=== PATIENT | female | born 1935 | race Caucasian/White ===

== ENCOUNTER 2016-11-04 18:37 | Inpatient (IN) | payer MEDICARE, OTHER ==
--- NOTE | 2016-11-04 19:56 | XR ---
EXAMINATION TYPE: AP view pelvis. 2 views right hip. DATE OF EXAM: 11/04/2016 COMPARISON: NONE HISTORY: 81 year-old female right hip and groin pain after fall FINDINGS: There is an impacted and proximally displaced transcervical basicervical fracture of the right femora l neck. External rotation of the femoral shaft fragment. Mild underlying degenerative change at the h ips. IMPRESSION: Impacted and proximally displaced basicervical to transcervical right femoral neck fracture.
--- NOTE | 2016-11-04 19:58 | XR ---
EXAMINATION TYPE: XR chest 1V DATE OF EXAM: 11/04/2016 COMPARISON: NONE HISTORY: 81-year-old female with pain after fall TECHNIQUE: Single frontal view of the chest is obtained. FINDINGS: Heart is upper limits of normal in size. Aorta and pulmonary vasculature within normal limits. Mild d iffuse interstitial prominence has a chronic appearance. No consolidation, pneumothorax, or pleural e ffusion. IMPRESSION: Chronic appearing changes without acute process.
--- NOTE | 2016-11-04 20:02 | XR ---
EXAMINATION TYPE: 3 views right elbow. 4 views right wrist. 3 views right hand. DATE OF EXAM: 11/04/2016 COMPARISON: NONE HISTORY: 81-year-old female generalized pain after fall FINDINGS: Right elbow: No elbow joint effusion. No acute fracture, subluxation, or dislocation. Right wrist: The radiocarpal and distal radioulnar joints as well as the midcarpal compartment appear intact. Ther e may be mild ulnar soft tissue swelling. No acute fracture, subluxation, or dislocation. Right hand: A ring is present on the fourth digit. Scattered [id number] osteoarthritic changes particularly in the DIP joints. No acute fracture, subluxation, or dislocation. IMPRESSION (right elbow, wrist, and hand): No acute osseous abnormality seen. Some scattered osteoarthritic changes in the fingers and mild ulna r-sided soft tissue swelling at the wrist.
[2016-11-04] MEDS ORDERED: fentaNYL (PF) 50 MCG/ML 2 ML AMP IV PRN (20:18)
--- NOTE | 2016-11-04 20:20 | ED ---
General Adult HPI - General Chief complaint: Fall Stated complaint: Fall Time Seen by Provider: 11/04/16 18:44 Source: patient, family, EMS, RN notes reviewed Mode of arrival: EMS - History of Present Illness Initial comments: 81-year-old female presents status post fall. Patient states she tripped falling onto her right side. She is currently complaining of right hip and groin pain. Patient was not in respiratory after the fall. She denies any head or neck trauma. Denies loss of consciousness. Complains of some right hand and right elbow pain as well. Denies any lightheadedness, chest pain, or palpitations prior to the fall. Patient's only past medical history is hypothyroidism. - Related Data Home Medications Medication Instructions Recorded Confirmed Ibandronate Sodium [Boniva] 150 mg PO Q30D 11/04/16 11/04/16 Latanoprost Ophth [Xalatan 0.005%] 1 drops BOTH EYES HS 11/04/16 11/04/16 Levothyroxine Sodium [Synthroid] 88 mcg PO DAILY 11/04/16 11/04/16 QUEtiapine [SEROquel] 25 mg PO HS 11/04/16 11/04/16 Rivastigmine 9.5MG/24Hr Patch 1 patch TRANSDERM DAILY 11/04/16 11/04/16 [Exelon 9.5MG/24Hr Patch] risperiDONE [RisperDAL] 0.25 mg PO HS 11/04/16 11/04/16 Allergies Allergy/AdvReac Type Severity Reaction Status Date / Time No Known Allergies Allergy Verified 11/04/16 18:50 Review of Systems ROS Statement: Those systems with pertinent positive or pertinent negative responses have been documented in the HPI. ROS Other: All systems not noted in ROS Statement are negative. Respiratory: Denies: cough Cardiovascular: Denies: chest pain Past Medical History Past Medical History: Thyroid Disorder History of Any Multi-Drug Resistant Organisms: None Reported Past Surgical History: Hysterectomy Past Psychological History: No Psychological Hx Reported Smoking Status: Never smoker Past Alcohol Use History: Occasional Past Drug Use History: None Reported General Exam General appearance: alert, in no apparent distress Head exam: Present: atraumatic, normocephalic Eye exam: Present: normal appearance, PERRL ENT exam: Present: normal exam, mucous membranes moist Neck exam: Present: normal inspection, full ROM. Absent: tenderness Respiratory exam: Present: normal lung sounds bilaterally. Absent: respiratory distress Cardiovascular Exam: Present: regular rate, normal rhythm GI/Abdominal exam: Present: soft. Absent: distended, tenderness Extremities exam: Present: normal capillary refill, other (Right lower extremity is shortened, there is no external signs of trauma to the knee or ankle, no bony tenderness tibia-fibula or proximal femur, distal pulses are intact.). Absent: pedal edema Psychiatric exam: Present: normal affect, normal mood Skin exam: Present: warm, dry Course Vital Signs 11/04/16 11/04/16 11/04/16 18:40 21:02 21:35 Temperature 98.2 F 98.5 F Pulse Rate 77 65 Pulse Rate [ 59 L Pulse Oximetery ] Respiratory 18 18 16 Rate Blood Pressure 155/71 161/67 Blood Pressure 145/78 [Right Arm] O2 Sat by Pulse 98 97 95 Oximetry EKG Findings - EKG Comments: EKG Findings:: EKG shows sinus bradycardia with a ventricular 59, CT interval 180, QRS duration 84, QTC is 439, there is no ST segment elevation or depression , no signs of ischemia. Medical Decision Making - Medical Decision Making 81-year-old female presenting status post mechanical fall onto her right side. Patient has a right femoral neck fracture, x-rays of the right wrist, hand, right elbow, and chest are negative for fracture or dislocation. Case is discussed with orthopedic surgery, she will be admitted for operative repair of right femoral neck fracture. Internal medicine will be placed on consult. Laboratory studies : CBC, BMP, and coagulation studies are unremarkable. Diagnosis: Right femoral neck fracture. - Lab Data Result diagrams: 11/04/16 21:00 11/04/16 21:00 Disposition Clinical Impression: Fall, Femoral neck fracture Disposition: ADMITTED IP TO THIS [facility] Condition: Stable Time of Disposition: 20:19 Decision to Admit Reason: Admit from EC Decision Date: 11/04/16 Decision Time: 20:20
[2016-11-04] MEDS ORDERED: ONDANSETRON 4 MG/2 ML VIAL IVP PRN (20:36)
[2016-11-04] MEDS ORDERED: NALOXONE 0.4 MG/ML 1 ML VIAL IV PRN (20:36)
[2016-11-04 21:13] LABS: Basophils % (A) 0 %; CHCM 34.5; Eosinophils # (A) 0.1 k/uL (0-0.7); Eosinophils % (A) 1 %; HCT 34.7 % (34.0-46.0); HDW 2.58; HGB 12.1 gm/dL (11.4-16.0); Luc # (Auto) 0.09; Luc % (Auto) 1; Lymphocytes # (A) 0.9 k/uL (1.0-4.8); Lymphocytes % (A) 9 %; MCH 32.5 pg (25.0-35.0); MCHC 34.9 g/dL (31.0-37.0); MCV 93.1 fL (80.0-100.0); Mean Platelet Volume 9.2; Monocytes # (A) 0.4 k/uL (0-1.0); Monocytes % (A) 4 %; Neutrophils # (A) 8.1 k/uL (1.3-7.7); Neutrophils % (A) 84 %; RBC 3.73 m/uL (3.80-5.40); RDW 13.7 % (11.5-15.5); WBC 9.7 k/uL (3.8-10.6); WBC (Perox) 10.58
[2016-11-04 21:22] LABS: INR 1.1 (<1.1); Partial Thromboplastin Time 23.2 sec (22.0-30.0); Prothrombin Time 11.3 sec (9.0-12.0)
[2016-11-04 21:25] LABS: Calcium 9.4 mg/dL (8.4-10.2); Potassium 4.4 mmol/L (3.5-5.1)
[2016-11-04] MEDS: MORPHINE SULFATE 4 MG/ML SYRINGE IVP PRN (23:37)
[2016-11-05] MEDS: HEPARIN SODIUM,PORCINE 5,000 UNIT/ML 1 ML VIAL SQ SCH ×3 (00:08→18:17)
[2016-11-05] MEDS: CALCITONIN 200 USP/1 NASAL SPRAY 3.7ML BTL NASAL SCH ×2 (00:08→07:50)
[2016-11-05] MEDS: QUEtiapine 25 MG TAB PO SCH ×2 (01:22→22:10)
[2016-11-05] MEDS: DEXTROSE 5%-0.45% NACL 1,000 ML IV SCH ×2 (01:25→07:45)
[2016-11-05] MEDS: LATANOPROST 0.005% OPHTH DROPS 2.5 ML BTL BOTH EYES SCH ×2 (01:26→22:09)
[2016-11-05] MEDS: MORPHINE SULFATE 4 MG/ML SYRINGE IVP PRN (03:26)
[2016-11-05 04:44] LABS: Appearance,Urine Clear (Clear); Bilirubin,Urine Negative (Negative); Glucose,Urine (UA) Negative (Negative); Ketones,Urine 1+ (Negative); Leukocyte Esterase,Urine Negative (Negative); Nitrite,Urine Negative (Negative); Protein,Urine Trace (Negative); Specific Gravity,Urine 1.016 (1.001-1.035); UA Billing (MACRO vs. MICRO) CHEM; Urobilinogen,Urine <2.0 mg/dL (<2.0)
[2016-11-05] MEDS: LEVOTHYROXINE 88 MCG TAB PO SCH (06:33)
[2016-11-05] MEDS: PANTOPRAZOLE 40 MG/10 ML VIAL IV SCH (07:49)
--- NOTE | 2016-11-05 08:22 | P.GSHP ---
History of Present Illness H&P Date: 11/05/16 Chief Complaint: Right Hip Pain Mrs. Chamorro is a very pleasant 81-year-old female who presented to [facility] after a fall yesterday with right hip pain. She was admitted to my service for treatment of her hip fracture. Her daughter is a physician legislative assistant who works here at the hospital. Mikaela was resting at the bedside in her room when I saw her this morning. She does have fairly significant dementia and as a result of accurate history was very difficult to take. Most of the history was derived through the medical record. Past Medical History Past Medical History: Thyroid Disorder History of Any Multi-Drug Resistant Organisms: None Reported Past Surgical History: Hysterectomy Past Psychological History: No Psychological Hx Reported Smoking Status: Never smoker Past Alcohol Use History: Occasional Past Drug Use History: None Reported Medications and Allergies Home Medications Medication Instructions Recorded Confirmed Type Ibandronate Sodium [Boniva] 150 mg PO Q30D 11/04/16 11/04/16 History Latanoprost Ophth [Xalatan 0.005%] 1 drops BOTH EYES HS 11/04/16 11/04/16 History Levothyroxine Sodium [Synthroid] 88 mcg PO DAILY 11/04/16 11/04/16 History QUEtiapine [SEROquel] 25 mg PO HS 11/04/16 11/04/16 History Rivastigmine 9.5MG/24Hr Patch 1 patch TRANSDERM DAILY 11/04/16 11/04/16 History [Exelon 9.5MG/24Hr Patch] risperiDONE [RisperDAL] 0.25 mg PO HS 11/04/16 11/04/16 History Allergies Allergy/AdvReac Type Severity Reaction Status Date / Time No Known Allergies Allergy Verified 11/04/16 18:50 Surgical - Exam Vital Signs Temp Pulse Resp BP Pulse Ox 98.2 F 77 18 155/71 98 11/04/16 18:40 11/04/16 18:40 11/04/16 18:40 11/04/16 18:40 11/04/16 18:40 - Musculoskeletal Mikaela expresses no pain with palpation and range of motion of all long bones and joints with the exception of the right hip. On examination of the right hip it is flexed and externally rotated as is usual with this type of fracture. She her skin is intact over the fracture site. There is very minimal bruising. She has no pain with palpation of the end distal femur the knee that tibia fibula and foot and ankle. She is able to flex and extend her ankle and her toes. Her sensation distally in her foot appears to be grossly intact. She has a palpable posterior tibial pulse and brisk capillary refill in all digits of her right foot. Results Reviewed x-ray of the pelvis and of the right hip. She has a displaced subcapital femoral neck fracture. The acetabulum shows no evidence of fracture. No evidence of extension of the fracture distally in the femur. - Labs 11/04/16 21:00 11/04/16 21:00 Abnormal Lab Results - Last 24 Hours (Table) 11/04/16 11/04/16 11/05/16 Range/Units 21:00 21:00 04:30 RBC 3.73 L (3.80-5.40) m/uL Neutrophils # 8.1 H (1.3-7.7) k/uL Lymphocytes # 0.9 L (1.0-4.8) k/uL Creatinine 1.10 H (0.52-1.04) mg/dL Glucose 149 H (74-99) mg/dL Urine Protein Trace H (Negative) Urine Ketones 1+ H (Negative) Diabetes panel 11/04/16 Range/Units 21:00 Sodium 140 (137-145) mmol/L Potassium 4.4 (3.5-5.1) mmol/L Chloride 105 (98-107) mmol/L Carbon Dioxide 25 (22-30) mmol/L BUN 13 (7-17) mg/dL Creatinine 1.10 H (0.52-1.04) mg/dL Glucose 149 H (74-99) mg/dL Calcium 9.4 (8.4-10.2) mg/dL Calcium panel 11/04/16 Range/Units 21:00 Calcium 9.4 (8.4-10.2) mg/dL Pituitary panel 11/04/16 Range/Units 21:00 Sodium 140 (137-145) mmol/L Potassium 4.4 (3.5-5.1) mmol/L Chloride 105 (98-107) mmol/L Carbon Dioxide 25 (22-30) mmol/L BUN 13 (7-17) mg/dL Creatinine 1.10 H (0.52-1.04) mg/dL Glucose 149 H (74-99) mg/dL Calcium 9.4 (8.4-10.2) mg/dL Adrenal panel 11/04/16 Range/Units 21:00 Sodium 140 (137-145) mmol/L Potassium 4.4 (3.5-5.1) mmol/L Chloride 105 (98-107) mmol/L Carbon Dioxide 25 (22-30) mmol/L BUN 13 (7-17) mg/dL Creatinine 1.10 H (0.52-1.04) mg/dL Glucose 149 H (74-99) mg/dL Calcium 9.4 (8.4-10.2) mg/dL Assessment and Plan (1) Femoral neck fracture Narrative/Plan: I discussed the x-ray findings as well as my clinical impression with Mrs. Chamorro and with her daughter. She is an independent ambulator. My recommendation would would be for a right hip hemiarthroplasty. She is very healthy other than her dementia. She has been cleared by the medical service for surgery. I did did discuss the risks with her and her daughter. These risks include but are not limited to risk of infection nerve damage bleeding pain small risk of deep vein thrombosis which could lead to fatal pulmonary embolism. Specific risks for her type of fracture would include possibility for periprosthetic fracture and instability in the hip which could require further surgery. All of Mikaela's daughter's questions were answered to her satisfaction. Appropriate informed consent was obtained. We will plan to proceed with surgery later this morning. Status: Acute
[2016-11-05] MEDS ORDERED: KETAMINE 10 MG/ML 20 ML VIAL ONE (09:42)
[2016-11-05] MEDS ORDERED: MIDAZOLAM 2 MG/2 ML VIAL ONE (09:42)
[2016-11-05] MEDS ORDERED: ePHEDrine 50 MG/ML 1 ML AMP ONE (09:42)
[2016-11-05] MEDS ORDERED: PROPOFOL 10 MG/ML 20 ML VIAL IV ONE (09:42)
[2016-11-05] MEDS ORDERED: IV FLUID CONTINUATION 1,000 ML IV ONE (10:12)
[2016-11-05] MEDS ORDERED: SODIUM CHLORIDE 0.9% 50 ML with ceFAZolin 2,000 MG IV ONE ×2 (10:12)
[2016-11-05] MEDS ORDERED: LACTATED RINGERS 1,000 ML IV ONE (10:23)
[2016-11-05] MEDS ORDERED: HYDROmorphone 1 MG/ML 1 ML SYRINGE IVP PRN ×2 (11:29)
[2016-11-05] MEDS ORDERED: DIAZEPAM 5 MG TAB PO PRN (11:29)
[2016-11-05] MEDS ORDERED: HYDROcodone/APAP 5-325MG 1 EACH TAB PO PRN ×2 (11:29)
[2016-11-05] MEDS ORDERED: MAGNESIUM HYDROXIDE 2,400 MG/10 ML CUP PO PRN (11:29)
[2016-11-05] MEDS ORDERED: TEMAZEPAM 15 MG CAP PO PRN (11:29)
[2016-11-05] MEDS ORDERED: LACTATED RINGERS 1,000 ML IV SCH (11:30)
--- NOTE | 2016-11-05 11:59 | XR ---
EXAMINATION TYPE: XR Hip Limited RT DATE OF EXAM: 11/05/2016 COMPARISON: 11/04/2016 HISTORY: 81-year-old female status post hip surgery, assess surgical alignment TECHNIQUE: Portable AP view FINDINGS: There has been interval placement of right hip hemiarthroplasty. Femoral short stem component appears well seated without periprosthetic fracture. Alignment is grossly anatomic. Some soft tissue gas rel ated to recent operation. A Dupree catheter is present. IMPRESSION: Uncomplicated postoperative appearance of the right hip hemiarthroplasty.
[2016-11-05 12:59] LABS: Basophils % (A) 0 %; CH 31.8; Eosinophils % (A) 0 %; HCT 33.8 % (34.0-46.0); HDW 2.42; HGB 11.3 gm/dL (11.4-16.0); Luc # (Auto) 0.06; Luc % (Auto) 1; Lymphocytes # (A) 0.7 k/uL (1.0-4.8); Lymphocytes % (A) 10 %; MCH 32.2 pg (25.0-35.0); MCHC 33.3 g/dL (31.0-37.0); MCV 96.7 fL (80.0-100.0); Mean Platelet Volume 9.3; Monocytes # (A) 0.4 k/uL (0-1.0); Monocytes % (A) 6 %; Neutrophils # (A) 5.8 k/uL (1.3-7.7); Neutrophils % (A) 83 %; RDW 13.6 % (11.5-15.5); WBC 6.9 k/uL (3.8-10.6); WBC (Perox) 6.99
[2016-11-05 13:07] LABS: Anion Gap 11 mmol/L; Blood Urea Nitrogen 9 mg/dL (7-17); Calcium 8.7 mg/dL (8.4-10.2); Carbon Dioxide 21 mmol/L (22-30); Chloride 104 mmol/L (98-107); Glucose 165 mg/dL (74-99); Non-African American GFR(MDRD) >60 (>60 ml/min/1.73 sqM); Sodium 136 mmol/L (137-145)
[2016-11-05] MEDS: HYDROmorphone 1 MG/ML 1 ML SYRINGE IVP PRN ×2 (15:16→18:32)
[2016-11-05] MEDS: ceFAZolin 2 GM in SODIUM CHLORIDE 0.9% 100 ML IVPB SCH (16:41)
[2016-11-05] MEDS: RIVASTIGMINE 9.5MG/24HR PATCH TRANSDERM SCH (16:41)
[2016-11-05] MEDS: traMADol 50 MG TAB PO PRN (18:17)
[2016-11-05] MEDS: 1: MVI, ADULT NO.4 WITH VIT K 10 ML, THIAMINE 100 MG, FOLIC ACID 1 MG in SODIUM CHLORIDE IV SCH ×4 (18:17)
[2016-11-05] MEDS ORDERED: SODIUM CHLORIDE 0.9% 1,000 ML BAG ONE (18:17)
[2016-11-05] MEDS ORDERED: risperiDONE 0.25 MG TAB PO SCH (21:00)
[2016-11-05] MEDS: SENNOSIDES-DOCUSATE SODIUM 1 EACH TAB PO SCH ×2 (21:04→22:10)
[2016-11-05] MEDS: ASPIRIN 325 MG TAB PO SCH ×2 (21:04→22:11)
[2016-11-06] MEDS ORDERED: HYDROmorphone 1 MG/ML 1 ML SYRINGE ONE
[2016-11-06] MEDS ORDERED: HEPARIN SODIUM,PORCINE 5,000 UNIT/ML 1 ML VIAL ONE
[2016-11-06] MEDS ORDERED: LORazepam 2 MG/ML SYRINGE ONE (01:52)
[2016-11-06] MEDS: 1: MVI, ADULT NO.4 WITH VIT K 10 ML, THIAMINE 100 MG, FOLIC ACID 1 MG in SODIUM CHLORIDE IV SCH ×8 (05:17→18:46)
[2016-11-06] MEDS: ceFAZolin 2 GM in SODIUM CHLORIDE 0.9% 100 ML IVPB SCH (05:18)
[2016-11-06] MEDS: HEPARIN SODIUM,PORCINE 5,000 UNIT/ML 1 ML VIAL SQ SCH ×3 (05:26→18:43)
[2016-11-06] MEDS: LEVOTHYROXINE 88 MCG TAB PO SCH (06:26)
[2016-11-06 07:50] LABS: Basophils # (A) 0.1 k/uL (0-0.2); Basophils % (A) 1 %; CH 31.3; CHCM 33.2; Eosinophils # (A) 0.1 k/uL (0-0.7); Eosinophils % (A) 1 %; HCT 32.8 % (34.0-46.0); HDW 2.56; HGB 11.2 gm/dL (11.4-16.0); Luc # (Auto) 0.14; Luc % (Auto) 2; Lymphocytes # (A) 0.9 k/uL (1.0-4.8); Lymphocytes % (A) 14 %; MCH 32.4 pg (25.0-35.0); MCHC 34.3 g/dL (31.0-37.0); MCV 94.4 fL (80.0-100.0); Mean Platelet Volume 8.2; Monocytes # (A) 0.3 k/uL (0-1.0); Monocytes % (A) 5 %; Neutrophils # (A) 4.8 k/uL (1.3-7.7); Neutrophils % (A) 77 %; RBC 3.47 m/uL (3.80-5.40); RDW 13.3 % (11.5-15.5); WBC 6.2 k/uL (3.8-10.6); WBC (Perox) 7.07
[2016-11-06 07:52] LABS: Anion Gap 9 mmol/L; Blood Urea Nitrogen 6 mg/dL (7-17); Calcium 8.2 mg/dL (8.4-10.2); Carbon Dioxide 25 mmol/L (22-30); Chloride 101 mmol/L (98-107); Glucose 114 mg/dL (74-99); Non-African American GFR(MDRD) >60 (>60 ml/min/1.73 sqM); Potassium 3.9 mmol/L (3.5-5.1); Sodium 135 mmol/L (137-145)
[2016-11-06] MEDS: ASPIRIN 325 MG TAB PO SCH ×2 (08:07→22:59)
[2016-11-06] MEDS: PANTOPRAZOLE 40 MG/10 ML VIAL IV SCH (08:08)
[2016-11-06] MEDS: RIVASTIGMINE 9.5MG/24HR PATCH TRANSDERM SCH (08:08)
[2016-11-06 11:03] VITALS: BMI 3026.3
[2016-11-06] MEDS: traMADol 50 MG TAB PO PRN (11:06)
[2016-11-06] MEDS: MULTIVITAMINS, THERA 1 EACH TAB PO SCH (11:06)
[2016-11-06] MEDS: CALCITONIN 200 USP/1 NASAL SPRAY 3.7ML BTL NASAL SCH (13:47)
--- NOTE | 2016-11-06 13:58 | P.PN ---
Subjective Principal diagnosis: Right hip fracture Patient is a pleasant 81-year-old female seen at bedside this afternoon. She is postop day #1 from right hip hemiarthroplasty after a fall resulted in a femoral neck fracture. She is doing well this afternoon with minimal complaints. Her pain is controlled. She denies any new complaints. Review of systems is negative for numbness, tingling, calf pain, fever, chills, chest pain , shortness of breath or other. Objective - Vital Signs Vital signs: Vital Signs Temp 97.8 F 11/06/16 07:09 Pulse 70 11/06/16 07:58 Resp 16 11/06/16 07:58 BP 142/69 11/06/16 07:09 Pulse Ox 97 11/06/16 07:09 Intake & Output 11/05/16 11/06/16 11/06/16 18:59 06:59 18:59 Intake Total 1350 1680 Output Total 1150 1000 700 Balance 200 680 -700 Weight 61.235 kg Intake: IV 1200 1200 Mvi, Adult No.4 with Vit 1200 K 10 ml Thiamine 100 mg Folic Acid 1 mg In Sodium Chloride 0.9% 1,000 ml @ 75 mls/hr IV .BY DURATION REHAN Rx#: [id number] Intake, IV Titration 150 Amount Sodium Chloride 0.9% 1, 150 000 ml @ 75 mls/hr IV .BY DURATION REHAN Rx#: [id number] Oral 480 Output: Urine 1050 1000 700 Uretheral (Dupree) 1000 Estimated Blood Loss 100 Other: Voiding Method Indwelling Catheter Indwelling Catheter Indwelling Catheter - Exam Special the right lower extremity reveals a benign surgical wound. There is no erythema, active bleeding, dehiscence or drainage. Neurological status is intact throughout the right lower extremity with motor and sensation. Vascular status intact with less than 2 second cap refill distally and 2+ dorsalis pedis pulses. The calf is soft and nontender. - Constitutional General appearance: Present: no acute distress - Psychiatric Psychiatric: Present: appropriate affect - Labs CBC & Chem 7: 11/06/16 07:03 11/06/16 07:03 Labs: Abnormal Lab Results - Last 24 Hours (Table) 11/06/16 11/06/16 Range/Units 07:03 07:03 RBC 3.47 L (3.80-5.40) m/uL Hgb 11.2 L (11.4-16.0) gm/dL Hct 32.8 L (34.0-46.0) % Lymphocytes # 0.9 L (1.0-4.8) k/uL Sodium 135 L (137-145) mmol/L BUN 6 L (7-17) mg/dL Glucose 114 H (74-99) mg/dL Calcium 8.2 L (8.4-10.2) mg/dL Assessment and Plan (1) Femoral neck fracture Narrative/Plan: She'll continue with routine postop orthopedic protocol including pain management, wound care, physical therapy, DVT prophylaxis and medical management. Expect that she'll we will discharge to an extended care facility or home in the next 1-2 days. Status: Acute Time with Patient: Less than 30
[2016-11-06] MEDS: ACETAMINOPHEN TAB 325 MG TAB PO PRN (15:31)
[2016-11-06] MEDS ORDERED: QUEtiapine 25 MG TAB PO STA (17:47)
--- NOTE | 2016-11-06 19:02 | OP ---
"DATE OF OPERATION: 11/05/16 PREOPERATIVE DIAGNOSIS: Right displaced femoral neck fracture. POSTOPERATIVE DIAGNOSIS: Right displaced femoral neck fracture. OPERATION: Right hip hemiarthroplasty. SURGEON: LEIGH ROBIN MD PRESIDENT EDUCATIONAL INSTITUTION: [facility] PA-C ANESTHESIA: Spinal with sedation. ESTIMATED BLOOD |LOSS: 100 mL. COMPLICATIONS: None apparent. DRAINS: None. DISPOSITION: Postanesthesia care unit. INDICATIONS: Mikaela is a very pleasant 81 year old female who fell at the longterm yesterday onto her right side. She was brought by ambulance to [facility]. Workup including x-rays revealed a displaced femoral neck fracture. She was admitted to my service and then cleared for surgery by the medical service. Mikaela is an independent ambulator. Both operative and nonoperative treatment were discussed with her and her family. Decision was made to go forward with a right hip hemiarthroplasty. The risks of the procedure were discussed in detail. These risks includes but are not limited to risks of infection, nerve damage, bleeding, pain, small risk of deep vein thrombosis which could lead to fatal pulmonary embolism. Further risks include possibility for periprosthetic fractures as well as postoperative instability which could necessitate further surgery. All of her and her family' s questions were answered to their satisfaction. Appropriate informed consent was obtained. DESCRIPTION OF THE PROCEDURE: The patient identified in the preoperative holding area. Surgical site was marked by both the patient and myself. She was given 2 gm of Ancef IV for prophylactic purposes. She was then transferred to the operative suite where she was placed supine on the operating room table. Spinal anesthetic was then administered and dosed per the anesthesia department without apparent complications. The patient was then placed in the left lateral decubitus position. Well padded in preparation for surgery. A well padded axillary roll was also placed. The patient's right lower extremity was then prepped and draped in the usual sterile fashion. Standard surgical pause was undertaken to ensure that we were operating on the correct site and that appropriate preoperative antibiotics had been given. All staff in the room were in agreement and we proceeded. The outlines of the greater trochanter were then marked with a surgical pen. Planned 10 to 12 cm incision was centered over the tip of the greater trochanter extending in line with the shaft of the femur was then marked with a surgical pen. The incision was then made with a 10 blade scalpel. Dissection was carried down sharply to the tensor fascia. Hemostasis was achieved with electrocautery. Tensor fascia was then incised in line with the incision. This exposed the underlying trochanteric bursa. The Charnley retractor was then placed. The trochanteric bursa was excised sharply. The raphe between the anterior one third and middle one third of the gluteus medius tendon was identified. This was then split and then modified anterolateral approach to the hip was then done. This was Gibbs type approach. This exposed the fracture. I then utilized reciprocating saw to make a femoral neck cut. This was approximately 1 to 1.5 cm above the lesser trochanter. I then removed the kashia femoral head utilizing the cork screw. This was then measured on the back table. It measured a 45. A 45 trial was then placed in the acetabulum. It had excellent suction. It was a good fit. The acetabulum was then thoroughly inspected. There was good cartilage remaining on the acetabulum. There were no fractures noted or loose bodies noted within the acetabulum. The leg was then flexed and externally rotated and placed in the bag anteriorly. I had excellent exposure of the femoral neck. insulation cutter and former was utilized to gain access to the femoral canal. I then reamed the femoral canal starting with a size 7 reamer up to a size 9 reamer. Good resistance was felt with a 9 reamer. I then started to proceed with broaching. I started with a 7 mm broach and increased incrementally up to a 9 mm broach. The broaching was done with the broach in approximately 10 to 15 degrees of anteversion. She did have fairly poor bone quality proximally. I made a decision to proceed with cemented femoral stem at this point. I then trialed with the broach with a -3 neck and a 45 head. There was a small amount of shuck. I then trialed with a standard neck and a 45 head. This was much more stable. The leg lengths were approximately equal. It was stable throughout a full range of motion. The trials were then redislocated. A made a decision to go forward with a size cemented stem standard neck and a 45 mm monopolar head. The femoral canal was then cleaned with pulse lavage. A canal plug was then placed at the appropriate depth. Antibiotic bone cement was then mixed on the back table by the surgical scheduler. It was then placed into a vegetable harvest worker gun. The cement was then placed in the proximal femoral canal. I utilized my thumb for pressurization due to her advanced age. The stem was placed in approximately 10 to 15 degrees of anteversion. The cement was held in place until the cement had dried. The standard neck and 45 mm monopolar head was then assembled on the back table. It was then impacted onto the Sarkar taper of the stem. The hip was then reduced. It was taken through a full motion. It was very stable. Ligaments were approximately equal. At this point, I proceeded with closure. The joint was thoroughly irrigated with sterile saline solution via pulse lavage with antibiotic added. The capsule gluteus medias and minimus tendons were repaired to the greater trochanter utilizing #5 interrupted Ethibond suture. The raphe between the anterior one third and middle one third of the gluteus medius was closed with 0- Vicryl interrupted suture. The Charnley retractor was then removed. Again the wound was thoroughly irrigated. The tensor fascia was then closed with a running #3 Quill suture. Again the wound was thoroughly irrigated. The subcutaneous tissue was closed with 2-0 Vicryl interrupted suture and the skin was closed with 3-0 Quill Monocryl suture. Dermabond was applied to the incision. Sterile compressive dressing was applied. The patient was placed into a hip adductor pillow. All sponge and needle counts were deemed correct prior to closure. The patient tolerated the procedure with apparent complication. She was transferred to the recovery room in stable condition. OMAR"
--- NOTE | 2016-11-06 19:13 | CONS ---
REASON FOR CONSULTATION: Advice regarding hypothyroidism and multiple medical issues, requested by Dr. Norman. HISTORY OF PRESENT ILLNESS: This 81-year-old woman with a past medical history of osteoporosis, dementia, history of hypothyroidism, being followed by Dr. Angela Bullock in the outpatient setting, was admitted after a fall and right hip fracture. The patient is being closely monitored. The patient is unable to give a coherent history because of significant dementia. Most of the history was taken from my discussion with staff and review of the chart. The patient underwent right hemiarthroplasty by Dr. Norman. PAST MEDICAL HISTORY: 1. History of hypothyroidism. 2. Osteoporosis. 3. History of diverticulitis. 4. History of recent hospitalization for hyperthyroidism. HOME MEDICATIONS: 1. Exelon patch daily. 2. Seroquel 25 mg at bedtime. 3. Synthroid 88 mcg p.o. daily. 4. Xalatan 0.005% one drop both eyes at bedtime. 5. Boniva 150 mg p.o. q.30 days. ALLERGIES: PENTOTHAL. Family history, social history, review of systems could not be taken at length because of the patient's mental status. No history of any significant illness in the family. Review of systems could not be taken. PHYSICAL EXAM: The patient is confused. Pulse 58, blood pressure 114/59, respiration 16, temperature 98 degrees, pulse ox 100% on 2 L. HEENT: Conjunctivae normal. Oral mucosa moist. NECK: No jugular venous distention. No carotid bruit. No thyroid enlargement. CARDIOVASCULAR: S1, S2 muffled. No S3. No S4. RESPIRATORY: Breath sounds diminished at the bases. No rhonchi. No crackles. ABDOMEN: Soft, non-tender. No mass palpable. LEGS: Status post right hip hemiarthroplasty. ASSESSMENT: 1. Status post right hip hemiarthroplasty. 2. Dementia. 3. Hypothyroidism. 4. History of osteoporosis. 5. History of glaucoma. 6. History of cholecystectomy. 7. NO CODE, NO CPR, NO VENT. RECOMMENDATIONS AND DISCUSSION: In this 81-year-old woman who presented with multiple complex medical issues, we will monitor the patient closely, continue the current medications, continue with symptomatic treatment. Resume the home doses. I would also recommend a repeat TSH to ensure normalcy of the thyroid status. Otherwise, DVT prophylaxis. Incentive spirometry. PT/OT evaluation. Possible ECF rehab. Guarded prognosis. Further recommendations to follow. Will follow the patient closely with you. Thank you, Dr. Norman, for letting us participate in the care of this patient. OMAR
[2016-11-06] MEDS: LATANOPROST 0.005% OPHTH DROPS 2.5 ML BTL BOTH EYES SCH (22:59)
[2016-11-06] MEDS: SENNOSIDES-DOCUSATE SODIUM 1 EACH TAB PO SCH (23:00)
[2016-11-06] MEDS: QUEtiapine 25 MG TAB PO SCH (23:00)
[2016-11-07] MEDS: HEPARIN SODIUM,PORCINE 5,000 UNIT/ML 1 ML VIAL SQ SCH ×2 (05:18→07:29)
[2016-11-07 07:23] VITALS: TEMP 97
[2016-11-07] MEDS: MULTIVITAMINS, THERA 1 EACH TAB PO SCH (07:29)
[2016-11-07] MEDS: ACETAMINOPHEN TAB 325 MG TAB PO PRN (07:29)
[2016-11-07] MEDS: LEVOTHYROXINE 88 MCG TAB PO SCH (07:29)
[2016-11-07] MEDS: CALCITONIN 200 USP/1 NASAL SPRAY 3.7ML BTL NASAL SCH (07:29)
[2016-11-07] MEDS: RIVASTIGMINE 9.5MG/24HR PATCH TRANSDERM SCH (07:29)
[2016-11-07] MEDS: ASPIRIN 325 MG TAB PO SCH (07:29)
[2016-11-07] MEDS: PANTOPRAZOLE 40 MG/10 ML VIAL IV SCH (07:30)
[2016-11-07 07:39] LABS: Anion Gap 8 mmol/L; Blood Urea Nitrogen 15 mg/dL (7-17); Calcium 8.4 mg/dL (8.4-10.2); Carbon Dioxide 23 mmol/L (22-30); Chloride 101 mmol/L (98-107); Glucose 101 mg/dL (74-99); Non-African American GFR(MDRD) 56 (>60 ml/min/1.73 sqM); Potassium 3.9 mmol/L (3.5-5.1); Sodium 132 mmol/L (137-145)
--- NOTE | 2016-11-07 10:06 | P.PN ---
Subjective Principal diagnosis: Right hip fracture Patient is a pleasant 81-year-old female seen at bedside this morning. She is postop day #2 from right hip hemiarthroplasty after a fall resulted in a femoral neck fracture. She is doing well this morning with minimal complaints. He has some right knee pain. Her pain is controlled. She denies any new complaints. Review of systems is negative for numbness, tingling, calf pain, fever, chills, chest pain, shortness of breath or other. Objective - Vital Signs Vital signs: Vital Signs Temp 97.0 F L 11/07/16 07:22 Pulse 86 11/07/16 07:22 Resp 14 11/07/16 07:22 BP 130/57 11/07/16 07:22 Pulse Ox 99 11/07/16 07:22 Intake & Output 11/06/16 11/07/16 11/07/16 18:59 06:59 18:59 Intake Total 300 Output Total 850 Balance -550 Weight 61.235 kg Intake: IV 300 Mvi, Adult No.4 with Vit 300 K 10 ml Thiamine 100 mg Folic Acid 1 mg In Sodium Chloride 0.9% 1,000 ml @ 75 mls/hr IV .BY DURATION REHAN Rx#: [id number] Output: Urine 850 Other: Voiding Method Indwelling Catheter # Voids 1 0 # Bowel Movements 0 - Exam Inspection of the right lower extremity reveals a benign surgical wound. There is no erythema, active bleeding, dehiscence or drainage. Neurological status is intact throughout the right lower extremity with motor and sensation. Vascular status intact with less than 2 second cap refill distally and 2+ dorsalis pedis pulses. The calf is soft and nontender. She has some pain with endpoints range of motion of the right knee. There is no knee effusion. There is no erythema or ecchymoses about the knee. There is no bony abnormality. The knee is ligamentously stable. The knee is nontender and not hot to touch. - Constitutional General appearance: Present: no acute distress - Psychiatric Psychiatric: Present: appropriate affect - Labs CBC & Chem 7: 11/06/16 07:03 11/07/16 06:55 Labs: Abnormal Lab Results - Last 24 Hours (Table) 11/07/16 Range/Units 06:55 Sodium 132 L (137-145) mmol/L Glucose 101 H (74-99) mg/dL Assessment and Plan (1) Femoral neck fracture Narrative/Plan: She'll continue with routine postop orthopedic protocol including pain management, wound care, physical therapy, DVT prophylaxis and medical management. We will obtain a x-ray of the right knee. Expect that she'll be able to discharge to an extended care facility in the next 1-2 days. Status: Acute Time with Patient: Less than 30
[2016-11-07] MEDS: traMADol 50 MG TAB PO PRN ×2 (11:01→12:10)
--- NOTE | 2016-11-07 11:26 | PN ---
DATE OF SERVICE: 11/06/2016 This 81-year-old woman who was admitted after right hip hemiarthroplasty is improving significantly. No chest pain. No palpitations. No fever. On exam, pulse 69, blood pressure 123/70, respirations 20, temperature 98.4, pulse ox 96% on room air. HEENT: Conjunctivae normal. NECK: No jugular venous distention. CARDIOVASCULAR: S1, S2. RESPIRATORY: Breath sounds diminished at the bases. No rhonchi, no crackles. ABDOMEN: Soft. LEGS: Status post surgery. NERVOUS SYSTEM: No focal deficits. LABS: Hemoglobin 11.2, sodium 135. ASSESSMENT: 1. Status post right hip hemiarthroplasty. 2. History of dementia. 3. Hyponatremia mild. 4. History of hypothyroidism. 5. Gait dysfunction. RECOMMENDATIONS AND DISCUSSION: This 81-year-old woman who presented with multiple complex medical issues. Will monitor the patient closely, continue the current medications, continue symptomatic treatment. Otherwise, at this time I recommend closely follow with orthopedic surgery. Further recommendations to follow. JEFFD
--- NOTE | 2016-11-07 14:05 | XR ---
EXAMINATION TYPE: XR knee complete RT DATE OF EXAM: 11/07/2016 COMPARISON: NONE HISTORY: 81-year-old female knee pain after fall TECHNIQUE: 3 views FINDINGS: Extensor mechanism is intact. No significant knee joint effusion seen. No acute fracture, subluxation , or dislocation. IMPRESSION: No acute osseous abnormality seen.
[2016-11-07 14:06] VITALS: BP 108/57; PULSE 81; RESP 20
--- NOTE | 2016-11-08 07:06 | PN ---
This 81 year old woman was admitted after right hip joint arthroplasty, the patient is being closely monitored. The patient is mildly confused. No chest pain. No palpitations. No fever. On exam, pulse 86. Blood pressure 130/56. Respiratory 14. Temperature 97 degrees. Pulse ox 97% on room air. HEENT: Conjunctivae normal. NECK: No JVD. CARDIOVASCULAR: S1, S2. RESPIRATORY: Breath sounds diminished at the bases. No rhonchi. No crackles. ABDOMEN: Soft, nontender. NERVOUS SYSTEM: No focal deficits. LABS: WBC 6.7, hemoglobin 11.2, sodium 132. ASSESSMENT: 1. Status post right hip hemiarthroplasty. 2. History of dementia. 3. History of ( ) mild. 4. History of hypothyroidism. 5. Gait dysfunction. RECOMMENDATIONS AND DISCUSSION: Recommend to continue current medications. Continue monitoring. Symptomatic treatment. Otherwise, at this time, I would recommend continue with monitoring. Seroquel prn and continue the rest of the medications. ECF rehab. Further recommendations to follow. JEFFD
[2016-11-08] MEDS ORDERED: PANTOPRAZOLE 40 MG TABLET PO SCH (07:30)
--- NOTE | 2016-11-08 08:55 | P.DS ---
Providers Date of admission: 11/04/16 20:36 Expected date of discharge: 11/07/16 Attending physician: Adin Norman Consults: 11/04/16 20:37 Consult Physician Urgent Consulting Provider: Merlene Jaimes Consult Reason/Comments: surgical clearance Do you want consulting provider notified?: Yes Primary care physician: Angela Rodrigez Ross - Discharge Diagnosis(es) (1) Femoral neck fracture Patient was admitted to this hospital on 11/04/2016 after a fall resulted in a right femoral neck fracture. She went to the OR on 11/15/2016 to undergo a right hip hemiarthroplasty per Dr. Norman. She tolerated the procedure well without complication. Her postoperative hospital course has remained without complication. On day of discharge she is afebrile, vital signs stable, labs within acceptable ranges, wound is benign, neurovascular status intact, calf soft nontender, denies new complaints, tolerating by mouth meds and diet, voiding without difficulty, passing flatus, denying numbness or tingling, denying abdominal pain, denying calf pain. Review of systems is negative for fever, chills, chest pain, shortness of breath, nausea, vomiting, dizziness, headaches, rashes, bleeding, slurred speech or other. Status: Acute Priority: Medium Procedures: Right hip hemiarthroplasty Patient Condition at Discharge: Good Plan - Discharge Summary New Discharge Prescriptions: New Acetaminophen Tab [Tylenol] 650 mg PO Q6HR PRN tab PRN Reason: Fever And/ Or Pain Aspirin 325 mg PO BID tab Calcitonin Nasal [Fortical] 1 spray NASAL DAILY spray Melatonin 5 mg PO HS PRN #1 tablet PRN Reason: Insomnia Multivitamins, Thera [Multivitamin (formulary)] 1 each PO DAILY@1200 tab Sennosides-Docusate Sodium [Senokot-S] 2 each PO HS tab traMADol HCl [Ultram] 50 mg PO Q6H PRN #20 tab PRN Reason: Mild To Moderate Pain Cholecalciferol [Vitamin D3] 2,000 unit PO DAILY #1 tablet Continue Rivastigmine 9.5MG/24Hr Patch [Exelon 9.5MG/24Hr Patch] 1 patch TRANSDERM DAILY QUEtiapine [SEROquel] 25 mg PO HS Levothyroxine Sodium [Synthroid] 88 mcg PO DAILY Latanoprost Ophth [Xalatan 0.005%] 1 drops BOTH EYES HS Discharge Medication List Latanoprost Ophth [Xalatan 0.005%] 1 drops BOTH EYES HS 11/04/16 [History] Levothyroxine Sodium [Synthroid] 88 mcg PO DAILY 11/04/16 [History] QUEtiapine [SEROquel] 25 mg PO HS 11/04/16 [History] Rivastigmine 9.5MG/24Hr Patch [Exelon 9.5MG/24Hr Patch] 1 patch TRANSDERM DAILY 11/04/16 [History] Acetaminophen Tab [Tylenol] 650 mg PO Q6HR PRN tab 11/07/16 [Rx] Aspirin 325 mg PO BID tab 11/07/16 [Rx] Calcitonin Nasal [Fortical] 1 spray NASAL DAILY spray 11/07/16 [Rx] Cholecalciferol [Vitamin D3] 2,000 unit PO DAILY #1 tablet 11/07/16 [Rx] Melatonin 5 mg PO HS PRN #1 tablet 11/07/16 [Rx] Multivitamins, Thera [Multivitamin (formulary)] 1 each PO DAILY@1200 tab [Rx] Sennosides-Docusate Sodium [Senokot-S] 2 each PO HS tab 11/07/16 [Rx] traMADol HCl [Ultram] 50 mg PO Q6H PRN #20 tab 11/07/16 [Rx] Follow up Appointment(s)/Referral(s): Noah Snyder MD [STAFF PHYSICIAN] - 3 Days (while at [facility]) Angela Bullock MD [Primary Care Provider] - 1 Week (after dc from [facility]) Adni Norman MD [STAFF PHYSICIAN] - 11/13/16 1:45 pm (Family can contact office ahead of time to have paperwork emailed to be done before appointment) Patient Instructions/Handouts: Precautions after Total Joint Replacement Surgery (DC), Total Hip Replacement (DC), Hip Abduction Pillow ([facility]) Activity/Diet/Wound Care/Special Instructions: [facility] Heart Healthy Diet WBAT with walker Bon[employer] on hold [employer] 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
== END 2016-11-07 15:30 | DRG 470 ==
LOC: EC 18:37 → 5MS5E 20:36 → 3SUR 11-05 10:00
PROVIDERS: ADMIT Orthopaedic Surgery Sports Medicine; ATTEND Orthopaedic Surgery Sports Medicine
PROC: 0SRR0J9 Replacement of Right Hip Joint, Femoral Surface with Synthetic Substitute, Cemented, Open Approach (ICD-10-PCS; principal; 2016-11-05 09:03)
DX: S72.031A Displaced midcervical fracture of right femur, initial encounter for closed fracture (principal); F03.90 Unspecified dementia, unspecified severity, without behavioral disturbance, psychotic disturbance, mood disturbance, and anxiety; E87.1 Hypo-osmolality and hyponatremia; R00.1 Bradycardia, unspecified; Z66 Do not resuscitate; E03.9 Hypothyroidism, unspecified; M79.641 Pain in right hand; M81.0 Age-related osteoporosis without current pathological fracture; M25.561 Pain in right knee; M25.521 Pain in right elbow; R26.9 Unspecified abnormalities of gait and mobility; H40.9 Unspecified glaucoma; Z90.49 Acquired absence of other specified parts of digestive tract; Z79.899 Other long term (current) drug therapy; Z88.4 Allergy status to anesthetic agent; Z87.19 Personal history of other diseases of the digestive system; Z86.19 Personal history of other infectious and parasitic diseases; Z79.83 Long term (current) use of bisphosphonates; Z90.710 Acquired absence of both cervix and uterus; Z71.3 Dietary counseling and surveillance; Z86.39 Personal history of other endocrine, nutritional and metabolic disease; W01.0XXA Fall on same level from slipping, tripping and stumbling without subsequent striking against object, initial encounter; Y92.129 Unspecified place in nursing home as the place of occurrence of the external cause
CPT/HCPCS: 71010; 72170; 73501; 73502; 80048; 81003; 82652; 84443; 85025; 85610; 85730; 86850; 86900; 86901; 88305; 88311; 93005; 94150; 94760; 96374; 99285

== ENCOUNTER 2018-02-14 12:26 | Inpatient (IN) | payer MEDICARE, OTHER ==
[2018-02-14 12:39] LABS: Glucose,Whole Blood 88 mg/dL (75-99)
[2018-02-14 12:51] LABS: Basophils # (A) 0.1 k/uL (0-0.2); Basophils % (A) 1 %; Eosinophils # (A) 0.2 k/uL (0-0.7); Eosinophils % (A) 3 %; HCT 35.6 % (34.0-46.0); Lymphocytes # (A) 1.6 k/uL (1.0-4.8); Lymphocytes % (A) 31 %; MCH 32.3 pg (25.0-35.0); MCHC 33.8 g/dL (31.0-37.0); MCV 95.6 fL (80.0-100.0); Monocytes # (A) 0.3 k/uL (0-1.0); Monocytes % (A) 6 %; Neutrophils # (A) 2.9 k/uL (1.3-7.7); Neutrophils % (A) 55 %; Platelet Count 200 k/uL (150-450); RBC 3.72 m/uL (3.80-5.40); WBC 5.2 k/uL (3.8-10.6)
[2018-02-14] MEDS ORDERED: tPA (Alteplase) PER PHARMACY 1 EACH MISC MISCELLANE PRN (13:01)
[2018-02-14 13:03] LABS: Calcium 9.9 mg/dL (8.4-10.2); Potassium 4.6 mmol/L (3.5-5.1); Total Bilirubin 0.5 mg/dL (0.2-1.3); Total Protein 7.4 g/dL (6.3-8.2)
[2018-02-14] MEDS ORDERED: ALTEPLASE IV STA (13:03)
[2018-02-14 13:05] LABS: INR 1.1 (<1.2); Partial Thromboplastin Time 23.8 sec (22.0-30.0); Prothrombin Time 10.9 sec (9.0-12.0)
[2018-02-14 13:11] LABS: Creatine Kinase 33 U/L (30-135)
[2018-02-14] MEDS: ALTEPLASE BOLUS 6 MG in EMPTY SYRINGE 1 SYR IV STA ×2 (13:11→17:58)
--- NOTE | 2018-02-14 13:11 | ED ---
General Adult HPI - General Stated complaint: poss CVA Time Seen by Provider: 02/14/18 12:30 Source: patient, family, EMS, RN notes reviewed, old records reviewed Mode of arrival: EMS Limitations: altered mental status - History of Present Illness Initial comments: 82-year-old female presenting for evaluation of slurred speech and left-sided weakness. Patient does have some baseline dementia however she is typically alert and oriented 4. Symptom onset began at approximately 11:30. EMS report onset at 1145, further history obtained from the patient's family who was able to communicate with the halfway and best time course is onset at 11:30 AM this morning. Patient is alert, has no complaints. Denies headache. She is not on any blood thinners. No history of trauma. No seizure-like activity. - Related Data Home Medications Medication Instructions Recorded Confirmed Levothyroxine Sodium [Synthroid] 88 mcg PO DAILY 11/04/16 02/14/18 Rivastigmine 9.5MG/24Hr Patch 1 patch TRANSDERM DAILY 11/04/16 02/14/18 [Exelon 9.5MG/24Hr Patch] Artificial Tears-Hypromellose 1 drops BOTH EYES TID PRN 02/14/18 02/14/18 [Artificial Tear Drops] Ascorbic Acid [Vitamin C] 500 mg PO DAILY 02/14/18 02/14/18 Calcitonin Nasal [Fortical 1 spray NASAL DIRECTED 02/14/18 02/14/18 (Miacalcin)] Colloidal Oatmeal [Eucerin Eczema 1 applic TOPICAL DAILY PRN 02/14/18 02/14/18 Relief] Cyanocobalamin (Vitamin B-12) 1,000 mcg PO DAILY 02/14/18 02/14/18 [Vitamin B-12] Ferrous Sulfate [Feosol] 325 mg PO TID 02/14/18 02/14/18 Ibandronate Sodium 150 mg PO QMONTH 02/14/18 02/14/18 LORazepam ORAL CONC [Ativan 1 mg PO DAILY PRN 02/14/18 02/14/18 Intensol] LORazepam [Ativan] 0.5 mg PO BID 02/14/18 02/14/18 Melatonin 5 mg PO HS 02/14/18 02/14/18 Mirtazapine 7.5 mg PO HS 02/14/18 02/14/18 Multivitamins, Thera [Multivitamin 1 tab PO DAILY 02/14/18 02/14/18 (formulary)] QUEtiapine [SEROquel] 50 mg PO QAM 02/14/18 02/14/18 QUEtiapine [SEROquel] 100 mg PO HS 02/14/18 02/14/18 Sennosides [Senna] 8.6 mg PO HS 02/14/18 02/14/18 traMADol HCl [Ultram] 50 mg PO BID PRN 02/14/18 02/14/18 Previous Rx's Medication Instructions Recorded Cholecalciferol [Vitamin D3] 2,000 unit PO DAILY #1 tablet 11/07/16 Allergies Allergy/AdvReac Type Severity Reaction Status Date / Time thiopental [From Pentothal] AdvReac Anaphylaxis Verified 02/14/18 14:04 Review of Systems ROS Statement: Those systems with pertinent positive or pertinent negative responses have been documented in the HPI. ROS Other: All systems not noted in ROS Statement are negative. Past Medical History Past Medical History: Eye Disorder, Thyroid Disorder Additional Past Medical History / Comment(s): OSTEOPOROSIS, CHRONIC LOW VIT-D, VAGINAL DELIVERY X3, GLAUCOMA, HYPOTHYROID, DIVERTICULITIS, RECENT HOSPITALIZATION FOR HYPERTHYROID "I THINK SHE MAY HAVE TAKEN TOO MUCH THYROID MEDICATION" PER DAUGHTER. RECENTLY MOVED TO [facility]. History of Any Multi-Drug Resistant Organisms: None Reported Past Surgical History: Cholecystectomy, Hysterectomy Past Anesthesia/Blood Transfusion Reactions: Previous Problems w/ Anesthesia Additional Past Anesthesia/Blood Transfusion Reaction / Comment(s): PER DAUGHTER , "SHE ARRESTED IN SURGERY AFTER HAVING SODIUM PENTATHOL". Past Psychological History: No Psychological Hx Reported Smoking Status: Never smoker Past Alcohol Use History: Occasional Past Drug Use History: None Reported - Past Family History Mother History Unknown: Yes General Exam Limitations: altered mental status General appearance: alert, in no apparent distress Head exam: Present: atraumatic, normocephalic Eye exam: Present: normal appearance, PERRL, EOMI Neck exam: Present: normal inspection. Absent: tenderness, meningismus Respiratory exam: Present: normal lung sounds bilaterally. Absent: respiratory distress, wheezes Cardiovascular Exam: Present: regular rate, normal rhythm GI/Abdominal exam: Present: soft. Absent: distended, tenderness Extremities exam: Present: normal inspection Back exam: Present: normal inspection. 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 Absent: oriented X3 (2) Skin exam: Present: warm, dry, intact. Absent: cyanosis, diaphoretic Course Vital Signs 02/14/18 02/14/18 02/14/18 12:29 12:45 13:00 Pulse Rate 73 71 73 Respiratory Rate Blood Pressure 155/119 171/77 149/63 O2 Sat by Pulse 97 98 97 Oximetry - Reevaluation(s) Reevaluation #1: 02/14/18 [address] Reyes, initial plan is for TPA as patient has no contraindications and she has deficit. I did discuss with the daughter and patient's children the risks benefits of TPA. Reevaluation #2: 02/14/18 1317 Patient is evaluated by stroke neurologist, at the time of his evaluation symptoms are somewhat improved and he does not recommend TPA. Family is agreeable. 02/14/18 14:27 EKG Findings - EKG Comments: EKG Findings:: EKG obtained at 1342, atrial fibrillation rate of 90, QRS duration 88, QTC 479, paroxysmal A. fib with sinus rhythm. Medical Decision Making - Medical Decision Making 82-year-old female presenting with signs and symptoms consistent with acute stroke. Patient was evaluated as a code stroke activation. CT is obtained as well as CT angiography. CT is negative for intracranial hemorrhage or mass effect. CT angiography negative for large vessel occlusion. Patient's additional workup in the emergency department included CBC, CMP and troponin are negative. EKG does show atrial fibrillation. Patient was initially planned as TPA candidate however at the time of reevaluation and evaluation by stroke neurologist was determined that the patient will not receive TPA. She will be treated as ischemic stroke with aspirin and statin. Admitted for neurology consultation. Urinalysis pending. - Lab Data Result diagrams: 02/14/18 12:34 02/14/18 12:34 Lab Results 02/14/18 02/14/18 02/14/18 Range/Units 12:34 12:34 12:34 WBC 5.2 (3.8-10.6) k/uL RBC 3.72 L (3.80-5.40) m/uL Hgb 12.0 (11.4-16.0) gm/dL Hct 35.6 (34.0-46.0) % MCV 95.6 (80.0-100.0) fL MCH 32.3 (25.0-35.0) pg MCHC 33.8 (31.0-37.0) g/dL RDW 13.0 (11.5-15.5) % Plt Count 200 (150-450) k/uL Neutrophils % 55 % Lymphocytes % 31 % Monocytes % 6 % Eosinophils % 3 % Basophils % 1 % Neutrophils # 2.9 (1.3-7.7) k/uL Lymphocytes # 1.6 (1.0-4.8) k/uL Monocytes # 0.3 (0-1.0) k/uL Eosinophils # 0.2 (0-0.7) k/uL Basophils # 0.1 (0-0.2) k/uL PT (9.0-12.0) sec INR (<1.2) APTT (22.0-30.0) sec Sodium 142 (137-145) mmol/L Potassium 4.6 (3.5-5.1) mmol/L Chloride 108 H (98-107) mmol/L Carbon Dioxide 25 (22-30) mmol/L Anion Gap 9 mmol/L BUN 20 H (7-17) mg/dL Creatinine 0.97 (0.52-1.04) mg/dL Est GFR (CKD-EPI)AfAm 63 (>60 ml/min/1.73 sqM) Est GFR (CKD-EPI)NonAf 54 (>60 ml/min/1.73 sqM) Glucose 93 (74-99) mg/dL POC Glucose (mg/dL) (75-99) mg/dL POC Glu [employer]ographer [employer] ID Calcium 9.9 (8.4-10.2) mg/dL Total Bilirubin 0.5 (0.2-1.3) mg/dL AST 22 (14-36) U/L ALT 15 (9-52) U/L Alkaline Phosphatase 41 (38-126) U/L Total Creatine Kinase 33 (30-135) U/L CK-MB (CK-2) 0.4 (0.0-2.4) ng/mL CK-MB (CK-2) Rel Index 1.2 Troponin I <0.012 (0.000-0.034) ng/mL Total Protein 7.4 (6.3-8.2) g/dL Albumin 4.0 (3.5-5.0) g/dL 02/14/18 02/14/18 Range/Units 12:34 12:38 WBC (3.8-10.6) k/uL RBC (3.80-5.40) m/uL Hgb (11.4-16.0) gm/dL Hct (34.0-46.0) % MCV (80.0-100.0) fL MCH (25.0-35.0) pg MCHC (31.0-37.0) g/dL RDW (11.5-15.5) % Plt Count (150-450) k/uL Neutrophils % % Lymphocytes % % Monocytes % % Eosinophils % % Basophils % % Neutrophils # (1.3-7.7) k/uL Lymphocytes # (1.0-4.8) k/uL Monocytes # (0-1.0) k/uL Eosinophils # (0-0.7) k/uL Basophils # (0-0.2) k/uL PT 10.9 (9.0-12.0) sec INR 1.1 (<1.2) APTT 23.8 (22.0-30.0) sec Sodium (137-145) mmol/L Potassium (3.5-5.1) mmol/L Chloride (98-107) mmol/L Carbon Dioxide (22-30) mmol/L Anion Gap mmol/L BUN (7-17) mg/dL Creatinine (0.52-1.04) mg/dL Est GFR (CKD-EPI)AfAm (>60 ml/min/1.73 sqM) Est GFR (CKD-EPI)NonAf (>60 ml/min/1.73 sqM) Glucose (74-99) mg/dL POC Glucose (mg/dL) 88 (75-99) mg/dL POC Glu Photographer Apprentice [employer] ID Omayra Jacinto Calcium (8.4-10.2) mg/dL Total Bilirubin (0.2-1.3) mg/dL AST (14-36) U/L ALT (9-52) U/L Alkaline Phosphatase (38-126) U/L Total Creatine Kinase (30-135) U/L CK-MB (CK-2) (0.0-2.4) ng/mL CK-MB (CK-2) Rel Index Troponin I (0.000-0.034) ng/mL Total Protein (6.3-8.2) g/dL Albumin (3.5-5.0) g/dL Disposition Clinical Impression: Cerebrovascular accident Disposition: ADMITTED IP TO THIS HOSP Condition: Stable Is patient prescribed a controlled substance at d/c from ED?: No Referrals: Angela Bullock MD [Primary Care Provider] - 1-2 days Decision to Admit Reason: Admit from EC Decision Date: 02/14/18 Decision Time: 14:28
[2018-02-14 13:24] LABS: Creatine Kinase MB 0.4 ng/mL (0.0-2.4); Troponin I <0.012 ng/mL (0.000-0.034)
--- NOTE | 2018-02-14 13:56 | CT ---
EXAMINATION TYPE: CT brain wo con for TPA DATE OF EXAM: 02/14/2018 COMPARISON: None HISTORY: Possible stroke. Neurologic deficits. CT DLP: 877.0 mGycm Automated exposure control for dose reduction was used. TECHNIQUE: CT scan of the head is performed without contrast. FINDINGS: There is no acute intracranial hemorrhage or midline shift identified. Dystrophic basal g anglia calcifications are seen. Small old lacunar injuries of the left basal ganglia are suspected. A ge-indeterminate lacunar injury of the right external capsule is seen inferiorly and image 25. There is diffuse ventricular and sulcal prominence consistent with diffuse age-related cerebral atrophy. T here is low-attenuation in the periventricular white matter consistent with chronic small vessel isch emic change. The globes are intact and the visualized sinuses are clear. Scleral calcifications ar e incidentally noted. Atherosclerosis is noted of the intracranial vasculature. IMPRESSION: No acute intracranial hemorrhage or midline shift. 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 There is diffuse age-rel ated cerebral atrophy and chronic small vessel ischemic change noted.
--- NOTE | 2018-02-14 14:08 | CT ---
EXAMINATION TYPE: CT angio head neck DATE OF EXAM: 02/14/2018 HISTORY: Possible stroke COMPARISON: CT brain of the same date CT DLP: 311.0 mGycm. Automated Exposure Control for Dose Reduction was Utilized. TECHNIQUE: CTA scan of the neck is performed with IV Contrast, patient injected with 65 mL of Isovue 370, axial images are obtained, coronal and sagittal reformatted images are reviewed. Three-D recons tructed images are created on an independent workstation and reviewed. FINDINGS: Carotid/Vascular Structures: There is a conventional three-vessel branch pattern of the aortic arch. The common carotids and vertebral arteries are patent. Internal carotid arteries are slightly small i n caliber but symmetric bilaterally. Scant amount of atherosclerosis is seen of the right vertebral a rtery without focal stenosis that is hemodynamically significant (greater than 50% occlusion). With r egards to the intracranial vasculature there is also no evidence of focal occlusion within the large vessels. The posterior communicating arteries are not seen, possibly related to size. Therefore circl e of Gallardo is unknown if it is intact. No aneurysmal outpouching is identified. Other: Paranasal sinuses are well aerated. Calvarium appears intact. Minimal multilevel degenerative changes of the cervical spine are seen. Scattered groundglass opacities within the upper lobes are ge ographic and nonspecific. Biapical pleural-parenchymal thickening is noted. IMPRESSION: 1. No evidence of large vessel vascular occlusion of the head or neck. Posterior communicating arteri es are not seen and could be due to the diminutive size. No evidence of intracranial aneurysm. 2. Geographic patchy opacities in the upper lungs may be on the basis of fluid overload or pneumoniti s and are nonspecific.
--- NOTE | 2018-02-14 14:16 | XR ---
EXAMINATION TYPE: XR chest 2V DATE OF EXAM: 02/14/2018 COMPARISON: 11/04/2016 HISTORY: Altered mental status and weakness. TECHNIQUE: Frontal and lateral views of the chest are obtained. FINDINGS: There is no focal air space opacity, pleural effusion, or pneumothorax seen. Chronic diffu se interstitial prominence is unchanged. The cardiac silhouette size is within normal limits. The o sseous structures are intact. IMPRESSION: No acute cardiopulmonary process.
[2018-02-14] MEDS ORDERED: ASPIRIN 325 MG TAB PO STA (14:20)
[2018-02-14 14:40] LABS: Appearance,Urine Clear (Clear); Bilirubin,Urine Negative (Negative); Blood,Urine Negative (Negative); Color,Urine Light Yellow; Glucose,Urine (UA) Negative (Negative); Ketones,Urine Negative (Negative); Leukocyte Esterase,Urine Trace (Negative); Nitrite,Urine Negative (Negative); PH, Urine 6.5 (5.0-8.0); Protein,Urine Negative (Negative); RBC,Urine 1 /hpf (0-5); Specific Gravity,Urine 1.027 (1.001-1.035); Squamous Epithelial Cell,Urine <1 /hpf (0-4); Urobilinogen,Urine <2.0 mg/dL (<2.0); WBC,Urine 3 /hpf (0-5)
[2018-02-14] MEDS ORDERED: ARTIFICIAL TEARS-HYPROMELLOSE DROPS 15 ML BTL BOTH EYES PRN (19:35)
[2018-02-14] MEDS ORDERED: traMADol 50 MG TAB PO PRN (19:35)
[2018-02-14] MEDS ORDERED: MINERAL OIL-WHITE PETROLATUM 120 GM JAR TOPICAL PRN (19:35)
[2018-02-14] MEDS ORDERED: LORazepam 1 MG TAB PO PRN (19:35)
[2018-02-14] MEDS ORDERED: IBANDRONATE SODIUM 150 MG PO SCH (19:45)
--- NOTE | 2018-02-14 20:39 | HP ---
HISTORY AND PHYSICAL DATE OF SERVICE: 02/14/2018 CHIEF COMPLAINTS: Left-sided weakness and slurring of speech. HISTORY OF PRESENT ILLNESS: This 82-year-old woman with a past medical history of dementia, history of DJD, history of osteoporosis, chronic low vitamin D, history of hypothyroid, being followed by Dr. Angela Bullock in the outpatient setting, living in an [facility] home. The [facility] home staff noted that the patient has left-sided weakness and slurring of speech, which lasted for some time and the patient was taken to [facility] and was admitted for further evaluation and treatment. The code stroke was done and score was around IV. CT scan of the brain did not show any acute abnormality. CT angio did not show any acute abnormality. The patient was admitted for further evaluation and treatment. Currently the patient unable to give coherent history. Most of the history taken from my discussion with staff and review of chart and discussion with the family at the bedside. PAST MEDICAL HISTORY: History of DJD, history of dementia, hypothyroidism, history of glaucoma. MEDICATIONS: Prior to admission: Home medications are: 1. Ultram 50 mg b.i.d. p.r.n. 2. Multivitamins 1 p.o. daily. 3. Vitamin C 500 mg p.o. daily. 4. Celexa 10 mg q.h.s. 5. Remeron 7.5 mg q.h.s. 6. Melatonin 5 mg q.h.s. 7. 9.5 mcg 1 patch daily. 8. Seroquel 50 mg q.a.m. 9. Calcitonin nasal spray. 10.Lorazepam 1 mg daily p.r.n. 12.Ativan 0.5 mg b.i.d. 13.Eucerin eczema one application daily. 14.Vitamin B12 1000 mg daily. 15.Vitamin D3 2000 daily. 16.Artificial Tears 1 drop both eyes t.i.d. p.r.n. 17.Senna 8.6 mg q.h.s. 18.Synthroid 88 mcg. 19.Iron sulfate 320 mg b.i.d. ALLERGIES: ASPIRIN AND LIPITOR. FAMILY HISTORY: No history of heart disease or strokes in the family. SOCIAL HISTORY: History of smoking, no history of alcohol. REVIEW OF SYSTEMS: Could not be taken. The patient is confused at baseline. PHYSICAL EXAM: Pulse 64, blood pressure 130/62, respiration 18, temperature 97.3, pulse ox 98% on room air. HEENT: Conjunctivae normal. Oral mucosa moist. NECK is no jugular venous distention. No carotid bruit. No lymph node enlargement. CARDIOVASCULAR: S1, S2 muffled. RESPIRATORY: Breath sounds diminished in the bases. No rhonchi. No crackles. ABDOMEN: Soft, nontender. No mass palpable. LEGS are no edema. No swelling. NERVOUS SYSTEM: Higher functions as mentioned earlier. Moves all 4 limbs. No focal motor or sensory deficits. LYMPHATICS: No lymph nodes palpable in the neck, axilla or groin. SKIN: No ulcer, rash or bleeding. LABS: WBC 5, hemoglobin is 12.3. UA noted. ASSESSMENT: 1. Slurring of speech and weakness left side of the body, possibly right-sided transient ischemic attack, rule out acute stroke. 2. History of dementia. 3. Hypothyroidism. 4. Osteoporosis. 5. Degenerative joint disease. 6. History of glaucoma. 7. History of diverticulitis. 8. Cholecystectomy. 9. History of dementia. RECOMMENDATIONS AND DISCUSSION: In this 82-year-old woman who presented with multiple complex medical issues, we will monitor the patient closely, continue the current medications, management and symptomatic treatment. I recommend antiplatelet agents. Otherwise Lipitor. Stroke code was called. See stroke code protocol for further information. Otherwise, resume the home medications. Further recommendations to follow. MMOZL / SAMMIN: [id number] / MTDD
[2018-02-14] MEDS ORDERED: ATORVASTATIN 80 MG TAB PO SCH (21:00)
--- NOTE | 2018-02-14 22:15 | P.CNNES ---
History of Present Illness Consult date: 02/14/18 Reason for Consult: Patient admitted with left sided weakness and dysphasia. History of Present Illness: This patient is a 82-year-old right-handed white female who was in her usual state of health until early this morning. She is residing at the assisted living [facility]. Apparently at about 11:30 AM the patient developed some symptoms of right-sided facial droop as well as slurred speech. Nursing staff also noted that she was showing signs of left-sided arm weakness. Nursing staff was very concerned as she has not shown these types of findings previously. She was having great deal difficulty getting her words out. EMS was called to the home and by the time they had arrived her symptoms were still quite noticeable. She was transported by EMS to the emergency room at [facility] for further evaluation. She evaluated in the emergency room by Dr. Zamudio. He had immediately assessed her neurological deficits and did NIH stroke scale for her. She was noted to have NIH stroke scale of 4.0. She was sent for immediate computed tomography scan of the brain which was completed and revealed no acute intracranial hemorrhage or midline shift. 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 The patient was reevaluated in the emergency room and it was decided to call a code stroke as her symptoms had recent onset. A code stroke was initiated in the emergency room and she was seen by the extension course coordinator Dianne Johnson. Neuro interventional is a [facility] was contacted through the stroke robotic and Dr. Reyes attended the call as he was in your interventionalists delivery and installation subcontractor. NIH stroke scale was once again evaluated and was noted initially to be 4.0. She completed her computed tomography scan of the brain as well as a CTA angiogram of the head and neck and was reevaluated in the ER by Dr. Reyes. CTA angiogram of the head and neck reveal no evidence of large vessel vascular occlusion of the head and neck region. No evidence for intracranial aneurysm. Her NIH stroke scale and now gone down to 2.0. She was showing improvement on the stroke robotic as well as her left-sided weakness was much improved. It was decided by Dr. Reyes that this patient was not a candidate for TPA. She was advised admission to the hospital for further evaluation and treatment of ischemic stroke. According to the daughter who is at bedside in the emergency room and is a physician topographical field assistant she also noted mother showing improvement while she was in the ER. She was then admitted to the hospital for a complete stroke evaluation. Initially in the ER the patient was also found on EKG showing signs of new onset of atrial fibrillation. By the time she was admitted to the medical floor she had converted back to normal sinus rhythm. Cardiology was consulted for further evaluation and recommendations. Neurologically the patient is doing much better and is awake and able to answer questions. She does have history of advanced dementia and does show signs of mild sundowning tonight. The patient has been treated for underlying dementia and is been taking Exelon 9.5 mg patch daily. Unfortunately the daughter has noted slight increase in confusion and agitation at the home. She is also been prescribed Seroquel to help with her behavioral changes but apparently this has not been very effective for her. Would consider a psychiatry consultation for this patient for further adjustment of medications. We would also recommend a cardiology consultation for further assessment of paroxysmal atrial fibrillation. Patient may benefit from placement of a reveal bus driver/monitor for long-term monitoring for cardiac arrhythmia. The patient was started on aspirin and admitted to the medical floor. Neurology is now been consulted for further evaluation and recommendations. We have recommended the patient undergo MRI of the brain tomorrow for further evaluation of acute stroke. Her overall prognosis at this time remains very guarded. This case was discussed at length with the patient's daughter who is a RN and physician topographical field assistant. All of her neurological findings were discussed with her today at length. Family is aware of her guarded condition. We will continue close neurological follow- up with this patient during this admission. Review of Systems Constitutional: Denies chills, Denies fever Eyes: denies blurred vision, denies pain Ears, nose, mouth and throat: Denies headache, Denies sore throat Cardiovascular: Denies chest pain, Denies shortness of breath Respiratory: Denies cough Gastrointestinal: Denies abdominal pain, Denies diarrhea, Denies nausea, Denies vomiting Genitourinary: Denies dysuria, Denies hematuria Musculoskeletal: Denies myalgias Integumentary: Denies pruritus, Denies rash Neurological: Reports aphasia, Reports change in mentation, Reports change in speech, Reports confusion, Reports memory loss, Reports paresthesias, Reports tingling, Denies numbness, Denies weakness Psychiatric: Reports confusion, Reports difficulty concentrating, Reports disorientation, Reports memory loss, Denies anxiety, Denies depression Endocrine: Denies fatigue, Denies weight change Past Medical History Past Medical History: Dementia, Eye Disorder, Thyroid Disorder Additional Past Medical History / Comment(s): OSTEOPOROSIS, CHRONIC LOW VIT-D, VAGINAL DELIVERY X3, GLAUCOMA, HYPOTHYROID, DIVERTICULITIS, past HOSPITALIZATION FOR HYPERTHYROID "I THINK SHE MAY HAVE TAKEN TOO MUCH THYROID MEDICATION" PER DAUGHTER. 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 Past Psychological History: No Psychological Hx Reported Additional Psychological History / Comment(s): DEMENTIA Smoking Status: Never smoker Past Alcohol Use History: Occasional Additional Past Alcohol Use History / Comment(s): started age 9 quit age 19."i can't rememebr how much i smoked" Past Drug Use History: None Reported - Past Family History Mother History Unknown: Yes Family Medical History: Unable to Obtain Father Family Medical History: Unable to Obtain Medications and Allergies Home Medications Medication Instructions Recorded Confirmed Type Levothyroxine Sodium [Synthroid] 88 mcg PO DAILY 11/04/16 02/14/18 History Rivastigmine 9.5MG/24Hr Patch 1 patch TRANSDERM DAILY 11/04/16 02/14/18 History [Exelon 9.5MG/24Hr Patch] Cholecalciferol [Vitamin D3] 2,000 unit PO DAILY #1 tablet 11/07/16 02/14/18 Rx Artificial Tears-Hypromellose 1 drops BOTH EYES TID PRN 02/14/18 02/14/18 History [Artificial Tear Drops] Ascorbic Acid [Vitamin C] 500 mg PO DAILY 02/14/18 02/14/18 History Calcitonin Nasal [Fortical 1 spray NASAL DIRECTED 02/14/18 02/14/18 History (Miacalcin)] Colloidal Oatmeal [Eucerin Eczema 1 applic TOPICAL DAILY PRN 02/14/18 02/14/18 History Relief] Cyanocobalamin (Vitamin B-12) 1,000 mcg PO DAILY 02/14/18 02/14/18 History [Vitamin B-12] Ferrous Sulfate [Feosol] 325 mg PO TID 02/14/18 02/14/18 History Ibandronate Sodium 150 mg PO QMONTH 02/14/18 02/14/18 History LORazepam ORAL CONC [Ativan 1 mg PO DAILY PRN 02/14/18 02/14/18 History Intensol] LORazepam [Ativan] 0.5 mg PO BID 02/14/18 02/14/18 History Melatonin 5 mg PO HS 02/14/18 02/14/18 History Mirtazapine 7.5 mg PO HS 02/14/18 02/14/18 History Multivitamins, Thera [Multivitamin 1 tab PO DAILY 02/14/18 02/14/18 History (formulary)] QUEtiapine [SEROquel] 50 mg PO QAM 02/14/18 02/14/18 History QUEtiapine [SEROquel] 100 mg PO HS 02/14/18 02/14/18 History Sennosides [Senna] 8.6 mg PO HS 02/14/18 02/14/18 History traMADol HCl [Ultram] 50 mg PO BID PRN 02/14/18 02/14/18 History Allergies Allergy/AdvReac Type Severity Reaction Status Date / Time thiopental [From Pentothal] AdvReac Anaphylaxis Verified 02/14/18 14:04 Physical Examination - Vital Signs Vital Signs: Vital Signs Temp Pulse Pulse Resp BP BP Pulse Ox 02/14/18 18:18 96.3 F L 64 18 134/62 99 02/14/18 18:04 64 17 164/59 99 02/14/18 16:10 77 18 146/97 99 02/14/18 15:00 90 19 165/91 96 02/14/18 14:00 83 17 171/82 95 02/14/18 13:00 73 17 149/63 97 02/14/18 12:45 71 18 171/77 98 02/14/18 12:29 73 18 155/119 97 Intake and Output 02/14/18 02/14/18 02/14/18 06:59 14:59 22:59 Output Total 200 Balance -200 Output: Urine 200 Other: # Voids 1 Weight 63.8 kg - Constitutional General appearance: average body habitus, cooperative - EENT EENT: PERRL, mucous membranes moist - Respiratory Respiratory: lungs clear, normal breath sounds - Cardiovascular Cardiovascular: regular rate, normal S1, normal S2 Extremities: no peripheral edema bilaterally - Gastrointestinal Gastrointestinal: normoactive bowel sounds - Integumentary Integumentary: normal - Neurologic Cranial nerve examination: PERRL, EOMI, VFF, V1/V2/V3 grossly intact, face symmetric, tongue midline, intact gag reflex, intact corneal reflex, normal palatal elevation Speech examination: intact Sensorimotor examination: intact Motor examination - right side: 4/5: biceps, triceps, wrist flexion, wrist extension, burn center nurse, hip flexors, knee extensors, dorsiflexion, toe extension (EHL) , plantarflexion Motor examination - left side: 3/5: biceps, triceps, wrist flexion, wrist extension, burn center nurse, 4/5: hip flexors, knee extensors, dorsiflexion, toe extension ( EHL), plantarflexion Detailed sensory examination: intact Reflex and gait examination: intact Reflexes: 1+: ankle, bicep, knee, tricep - Musculoskeletal Musculoskeletal: no pain - Psychiatric Psychiatric: mood/affect appropriate, cooperative Results - Laboratory Findings CBC and BMP: 02/14/18 12:34 02/14/18 12:34 Abnormal Lab Findings: Abnormal Labs 02/14/18 02/14/18 02/14/18 12:34 12:34 14:23 RBC 3.72 L Chloride 108 H BUN 20 H Ur Leukocyte Esterase Trace H Assessment and Plan (1) Acute right arterial ischemic stroke, MCA (middle cerebral artery) Current Visit: Yes Status: Acute Code(s): I63.511 - CEREB INFRC D/T UNSP OCCLS OR STENOS OF RIGHT MID CEREB ART SNOMED Code(s): 464479596 (2) Paroxysmal atrial fibrillation Current Visit: Yes Status: Acute Code(s): I48.0 - PAROXYSMAL ATRIAL FIBRILLATION SNOMED Code(s): 700065333 (3) Dementia Current Visit: Yes Status: Acute Code(s): F03.90 - UNSPECIFIED DEMENTIA WITHOUT BEHAVIORAL DISTURBANCE SNOMED Code(s): 78655234 (4) Dysphasia Current Visit: Yes Status: Acute Code(s): R47.02 - DYSPHASIA SNOMED Code(s ): 16701027 (5) Hypothyroidism Current Visit: Yes Status: Acute Code(s): E03.9 - HYPOTHYROIDISM, UNSPECIFIED SNOMED Code(s): 45683041 Plan: This patient is a pleasant 82-year-old right-handed white female who was admitted to [facility] today with acute onset of left-sided arm weakness and slurred speech and possible right facial droop. [facility] and she continued to show signs of acute mental status changes. She was transported to the emergency room at [facility] for further evaluation. She was seen in the ER by Dr. Zamudio and NIH stroke scale was initially applied. A code stroke was initiated in the ER and her initial NIH score was 4.0. A repeat study in 50 minutes revealed her NIH stroke scale to be 2.0. The neuro interventional assessment [facility] was contacted, the on-call neuro interventional as was Dr. Reyes and he recommended no tPA for this patient. Patient was subsequently admitted to the hospital for a complete stroke evaluation. She underwent computed tomography scan of the brain which failed to reveal any evidence of acute stroke. CTA angiogram failed to reveal any significant abnormalities. She was admitted to hospital for further evaluation. Patient was seen today on the selective care floor. She appears to be moderately confused secondary to her underlying dementia. She was started on aspirin in the emergency room and as noted did have evidence of new onset of atrial fibrillation for which she has converted back to normal sinus rhythm currently on the medical floor. The patient was examined in her neurological findings included left-sided pronator drift with left arm weakness. There was minimal signs of facial asymmetry. Muscle strength on her left side appears to be normal at this time. Her neurological examination findings would be consistent with an acute right MCA stroke. We have recommended a complete stroke evaluation for this patient. Case was discussed at length with the patient's daughter who is a registered nurse. All of her questions were answered. She is very aware of her mother's guarded condition. Her overall prognosis at this time remains guarded. Time with Patient: Greater than 30
[2018-02-14] MEDS: HEPARIN SODIUM,PORCINE 5,000 UNIT/ML 1 ML VIAL SQ SCH (23:36)
[2018-02-14] MEDS: MIRTAZAPINE 15 MG TAB PO SCH (23:37)
[2018-02-14] MEDS: LORazepam 0.5 MG TAB PO SCH (23:37)
[2018-02-14] MEDS: MELATONIN 5 MG TABLET PO SCH (23:37)
[2018-02-14] MEDS: SENNOSIDES 8.6 MG TAB PO SCH (23:40)
[2018-02-14] MEDS: QUEtiapine 50 MG TAB PO SCH (23:40)
[2018-02-14] MEDS: FERROUS SULFATE 325 MG TAB PO SCH (23:41)
[2018-02-15 07:14] LABS: Basophils # (A) 0.1 k/uL (0-0.2); Basophils % (A) 1 %; Eosinophils # (A) 0.1 k/uL (0-0.7); Eosinophils % (A) 3 %; HGB 12.3 gm/dL (11.4-16.0); Lymphocytes # (A) 1.8 k/uL (1.0-4.8); Lymphocytes % (A) 32 %; MCH 30.9 pg (25.0-35.0); MCHC 32.3 g/dL (31.0-37.0); MCV 95.4 fL (80.0-100.0); Mean Platelet Volume 8.5; Monocytes # (A) 0.5 k/uL (0-1.0); Monocytes % (A) 8 %; Neutrophils % (A) 54 %; Platelet Count 220 k/uL (150-450); RBC 3.99 m/uL (3.80-5.40); RDW 12.9 % (11.5-15.5); WBC 5.6 k/uL (3.8-10.6)
[2018-02-15 07:33] LABS: Calcium 9.9 mg/dL (8.4-10.2); Potassium 4.5 mmol/L (3.5-5.1)
[2018-02-15] MEDS: PANTOPRAZOLE 40 MG TABLET PO SCH (07:46)
[2018-02-15] MEDS: LEVOTHYROXINE 88 MCG TAB PO SCH ×2 (07:46→09:18)
--- NOTE | 2018-02-15 08:34 | P.CRDCN ---
History of Present Illness Consult date: 02/15/18 Requesting physician: Merlene Jaimes Consult reason: atrial fibrillation Chief complaint: left-sided weakness, slurring of speech History of present illness: This is a pleasant 82-year-old female with past medical history significant for dementia, osteoporosis, hypothyroidism, who resides in an adult foster nursing home. He was noted yesterday that the patient had a left-sided weakness with associated slurring of speech and for this reason the patient was taken to the emergency room here at [facility] for further evaluation.initial EKG on presentation here showed atrial fibrillation with conversion to normal sinus rhythm. The patient continues to be in a normal sinus rhythm this morning. CAT scan of the brain did not reveal any acute intracranial hemorrhage or midline shift. Also severe injury of the left basal ganglia an age indeterminant listener injury of the right external capsule. Diffuse age-related cerebral atrophy and chronic small vessel ischemia is noted. Chest x-ray did not reveal any acute cardiopulmonary process. CT angio of the head and neck was performed which did not reveal any evidence of large vessel vascular occlusion of the head or neck. No evidence of intracranial aneurysm. Blood pressure 155/119 on arrival, heart rate in the 70s, 97% on room air. blood pressure 164/76, heart rate in the 70s, afebrile, 95%on room air. White blood cell count 5.6, hemoglobin 12.3, platelet count 220. Sodium 143, potassium 4.5, BUN 16, creatinine 0.9.troponin 0.012. Cholesterol 218, LDL 135, HDL 63, triglycerides 101. At the time of my examination this morning, patient is lying comfortably in bed,she is quite confused, but attempts to answer questions appropriately. She does not appear to have any slurring of speech this morning. Able to move all extremities. Past Medical History Past Medical History: Dementia, Eye Disorder, Thyroid Disorder Additional Past Medical History / Comment(s): OSTEOPOROSIS, CHRONIC LOW VIT-D, VAGINAL DELIVERY X3, GLAUCOMA, HYPOTHYROID, DIVERTICULITIS, past HOSPITALIZATION FOR HYPERTHYROID "I THINK SHE MAY HAVE TAKEN TOO MUCH THYROID MEDICATION" PER DAUGHTER. past fall/rt broken femur(sx done),had pne vaccine in past unsure of date, blog writer unable to verify date at time of admit History of Any Multi-Drug Resistant Organisms: None Reported Past Surgical History: Cholecystectomy, Hysterectomy Additional Past Surgical History / Comment(s): rt hip hemiarthroplasty Past Anesthesia/Blood Transfusion Reactions: Previous Problems w/ Anesthesia Additional Past Anesthesia/Blood Transfusion Reaction / Comment(s): PER DAUGHTER , "SHE ARRESTED IN SURGERY AFTER HAVING SODIUM PENTATHOL". Past Psychological History: No Psychological Hx Reported Additional Psychological History / Comment(s): DEMENTIA Smoking Status: Never smoker Past Alcohol Use History: Occasional Additional Past Alcohol Use History / Comment(s): started age 9 quit age 19."i can't rememebr how much i smoked" Past Drug Use History: None Reported - Past Family History Mother History Unknown: Yes Family Medical History: Unable to Obtain Father Family Medical History: Unable to Obtain Medications and Allergies Home Medications Medication Instructions Recorded Confirmed Type Levothyroxine Sodium [Synthroid] 88 mcg PO DAILY 11/04/16 02/14/18 History Rivastigmine 9.5MG/24Hr Patch 1 patch TRANSDERM DAILY 11/04/16 02/14/18 History [Exelon 9.5MG/24Hr Patch] Cholecalciferol [Vitamin D3] 2,000 unit PO DAILY #1 tablet 11/07/16 02/14/18 Rx Artificial Tears-Hypromellose 1 drops BOTH EYES TID PRN 02/14/18 02/14/18 History [Artificial Tear Drops] Ascorbic Acid [Vitamin C] 500 mg PO DAILY 02/14/18 02/14/18 History Calcitonin Nasal [Fortical 1 spray NASAL DIRECTED 02/14/18 02/14/18 History (Miacalcin)] Colloidal Oatmeal [Eucerin Eczema 1 applic TOPICAL DAILY PRN 02/14/18 02/14/18 History Relief] Cyanocobalamin (Vitamin B-12) 1,000 mcg PO DAILY 02/14/18 02/14/18 History [Vitamin B-12] Ferrous Sulfate [Feosol] 325 mg PO TID 02/14/18 02/14/18 History Ibandronate Sodium 150 mg PO QMONTH 02/14/18 02/14/18 History LORazepam ORAL CONC [Ativan 1 mg PO DAILY PRN 02/14/18 02/14/18 History Intensol] LORazepam [Ativan] 0.5 mg PO BID 02/14/18 02/14/18 History Melatonin 5 mg PO HS 02/14/18 02/14/18 History Mirtazapine 7.5 mg PO HS 02/14/18 02/14/18 History Multivitamins, Thera [Multivitamin 1 tab PO DAILY 02/14/18 02/14/18 History (formulary)] QUEtiapine [SEROquel] 50 mg PO QAM 02/14/18 02/14/18 History QUEtiapine [SEROquel] 100 mg PO HS 02/14/18 02/14/18 History Sennosides [Senna] 8.6 mg PO HS 02/14/18 02/14/18 History traMADol HCl [Ultram] 50 mg PO BID PRN 02/14/18 02/14/18 History Allergies Allergy/AdvReac Type Severity Reaction Status Date / Time thiopental [From Pentothal] AdvReac Anaphylaxis Verified 02/14/18 14:04 Physical Exam Vitals: Vital Signs Temp Pulse Pulse Resp BP BP Pulse Ox 02/15/18 04:00 97.5 F L 71 16 164/77 95 02/15/18 00:00 98.5 F 70 16 120/63 95 02/14/18 20:00 98.1 F 65 16 139/61 95 02/14/18 18:18 96.3 F L 64 18 134/62 99 02/14/18 18:04 64 17 164/59 99 02/14/18 16:10 77 18 146/97 99 02/14/18 15:00 90 19 165/91 96 02/14/18 14:00 83 17 171/82 95 02/14/18 13:00 73 17 149/63 97 02/14/18 12:45 71 18 171/77 98 02/14/18 12:29 73 18 155/119 97 Intake and Output 02/14/18 02/15/18 02/15/18 22:59 06:59 14:59 Output Total 200 350 Balance -200 -350 Output: Urine 200 350 Other: Voiding Method Bedside Commode # Voids 1 1 Weight 58 kg PHYSICAL EXAMINATION: GENERAL:82-year-old female in no acute distress examination HEENT: Head is atraumatic, normocephalic. Pupils equal, round. Sclera anicteric. Conjunctiva are clear. Mucous membranes of the mouth are moist. Neck is supple. There is no elevated jugular venous pressure.no carotid bruit is heard. HEART EXAMINATION: [Heart S1, S2 systolic murmur heard.] CHEST EXAMINATION:[ Lungs are clear to auscultation and precussion. No chest wall tenderness is noted on palpation or with deep breathing.] ABDOMEN: [ Soft, nontender. Bowel sounds are heard. No organomegaly noted]. EXTREMITIES:[ 2+ peripheral pulses with no evidence of peripheral edema and no calf tenderness noted]. NEUROLOGIC [patient is awake, alert, confused.] . Results 02/15/18 06:17 02/15/18 06:17 Cardiac Enzymes 02/14/18 02/14/18 Range/Units 12:34 12:34 AST 22 (14-36) U/L CK-MB (CK-2) 0.4 (0.0-2.4) ng/mL Troponin I <0.012 (0.000-0.034) ng/mL Coagulation 02/14/18 Range/Units 12:34 PT 10.9 (9.0-12.0) sec APTT 23.8 (22.0-30.0) sec Lipids 02/15/18 Range/Units 06:17 Triglycerides 101 (<150) mg/dL Cholesterol 218 H (<200) mg/dL HDL Cholesterol 63 H (40-60) mg/dL CBC 02/14/18 02/15/18 Range/Units 12:34 06:17 WBC 5.2 5.6 (3.8-10.6) k/uL RBC 3.72 L 3.99 (3.80-5.40) m/uL Hgb 12.0 12.3 (11.4-16.0) gm/dL Hct 35.6 38.0 (34.0-46.0) % Plt Count 200 220 (150-450) k/uL Comprehensive Metabolic Panel 02/14/18 02/15/18 Range/Units 12:34 06:17 Sodium 142 143 (137-145) mmol/L Potassium 4.6 4.5 (3.5-5.1) mmol/L Chloride 108 H 108 H (98-107) mmol/L Carbon Dioxide 25 25 (22-30) mmol/L BUN 20 H 16 (7-17) mg/dL Creatinine 0.97 0.91 (0.52-1.04) mg/dL Glucose 93 94 (74-99) mg/dL Calcium 9.9 9.9 (8.4-10.2) mg/dL AST 22 (14-36) U/L ALT 15 (9-52) U/L Alkaline Phosphatase 41 (38-126) U/L Total Protein 7.4 (6.3-8.2) g/dL Albumin 4.0 (3.5-5.0) g/dL Current Medications Generic Name Dose Route Start Last Admin Trade Name Freq PRN Reason Stop Dose Admin Artificial Tears 1 drops 02/14/18 19:35 Artificial Tear Drops BOTH EYES TID PRN Dry Eye(s) Ascorbic Acid 500 mg 02/15/18 09:00 Vitamin C PO DAILY [facility] Aspirin 325 mg 02/15/18 09:00 Aspirin PO DAILY [facility] Atorvastatin Calcium 80 mg 02/14/18 21:00 02/14/18 23:36 Lipitor PO 80 mg HS REHAN Administration Calcitonin [place] 1 spray 02/16/18 09:00 Fortical NASAL Q48H REHAN Cholecalciferol 2,000 unit 02/15/18 09:00 Vitamin D3 PO DAILY [facility] Cyanocobalamin 1,000 mcg 02/15/18 09:00 Vitamin B-12 PO DAILY [facility] Ferrous Sulfate 325 mg 02/14/18 22:00 02/14/18 23:41 Feosol PO 325 mg TID REHAN Administration Heparin Sodium (Porcine) 5,000 unit 02/14/18 21:00 02/14/18 23:36 Heparin SQ 5,000 unit Q12HR REHAN Administration Levothyroxine Sodium 88 mcg 02/15/18 06:30 02/15/18 07:46 Synthroid PO 88 mcg DAILY@0630 REHAN Administration Lorazepam 0.5 mg 02/14/18 21:00 02/14/18 23:37 Ativan PO 0.5 mg BID REHAN Administration Lorazepam 1 mg 02/14/18 19:35 Ativan PO DAILY PRN Anxiety Melatonin 5 mg 02/14/18 21:00 02/14/18 23:37 Melatonin PO 5 mg HS REHAN Administration Mirtazapine 7.5 mg 02/14/18 21:00 02/14/18 23:37 Remeron PO 7.5 mg HS REHAN Administration Multi-Ingred Cream/Lotion/Oil/Oint 1 applic 02/14/18 19:35 Eucerin Cream TOPICAL DAILY PRN DRY FEET Multivitamins 1 each 02/15/18 12:00 Theragran PO DAILY@1200 REHAN Pantoprazole Sodium 40 mg 02/15/18 07:30 02/15/18 07:46 Protonix PO 40 mg AC-[id number] REHAN Administration Quetiapine Fumarate 100 mg 02/14/18 21:00 02/14/18 23:40 Seroquel PO 100 mg HS REHAN Administration Quetiapine Fumarate 50 mg 02/15/18 09:00 Seroquel PO QAM REHAN Rivastigmine 1 patch 02/15/18 09:00 Exelon 9.5mg/24hr Patch TRANSDERM DAILY REHAN Senna 8.6 mg 02/14/18 21:00 02/14/18 23:40 Senokot PO 8.6 mg HS REHAN Administration Tramadol HCl 50 mg 02/14/18 19:35 Ultram PO BID PRN Pain Intake and Output 02/14/18 02/15/18 02/15/18 22:59 06:59 14:59 Output Total 200 350 Balance -200 -350 Output: Urine 200 350 Other: Voiding Method Bedside Commode # Voids 1 1 Weight 58 kg 02/15/18 06:17 02/15/18 06:17 EKG Interpretations (text) EKG on arrival here showed atrial fibrillation with conversion to normal sinus rhythm. Assessment and Plan Plan: assessment and plan #1 left-sided weakness with associated slurring of speech, possible TIA. #2 advanced dementia #3 hypothyroidism #4 degenerative joint disease #5 paroxysmal atrial fibrillation, currently in normal sinus rhythm Plan We will obtain an echocardiogram with Doppler study.Obtain TSH level.This patient should be on anticoagulation for stroke prevention, we recommend that she be initiated on Eliquis 2-1/2 mg one tablet by mouth twice a day we will discuss this further with her daughter who is a nurse practitioner with the hospitalist group. Further recommendations to follow. DNP note has been reviewed, I agree with a documented findings and plan of care. Patient was seen and examined.
[2018-02-15] MEDS ORDERED: ASPIRIN 325 MG TAB PO SCH (09:00)
[2018-02-15] MEDS: LORazepam 0.5 MG TAB PO SCH (09:10)
[2018-02-15] MEDS: CYANOCOBALAMIN 500 MCG TAB PO SCH (09:10)
[2018-02-15] MEDS: FERROUS SULFATE 325 MG TAB PO SCH ×3 (09:10→21:05)
[2018-02-15] MEDS: HEPARIN SODIUM,PORCINE 5,000 UNIT/ML 1 ML VIAL SQ SCH (09:11)
[2018-02-15] MEDS: ASCORBIC ACID 500 MG TAB PO SCH (09:11)
[2018-02-15] MEDS: QUEtiapine 50 MG TAB PO SCH ×2 (09:11→21:05)
[2018-02-15] MEDS: CHOLECALCIFEROL 1,000 UNIT TAB PO SCH (09:11)
--- NOTE | 2018-02-15 10:49 | ECHOF ---
Referral Reason:Thrombus MEASUREMENTS -------- HEIGHT: 162.6 cm WEIGHT: 63.5 kg BP: RVIDd: 2.4 cm (< 3.3) IVSd: 0.9 cm (0.6 - 1.1) LVIDd: 4.0 cm (3.9 - 5.3) LVPWd: 0.9 cm (0.6 - 1.1) IVSs: 1.4 cm LVIDs: 2.8 cm LVPWs: 1.2 cm LA Diam: 3.1 cm (2.7 - 3.8) LAESV Index (A-L): 25.43 ml/m Ao Diam: 3.3 cm (2.0 - 3.7) AV Cusp: 1.7 cm (1.5 - 2.6) MV E Olman: 0.78 m/s MV DecT: 174 ms MV A Olman: 0.98 m/s MV E/A Ratio: 0.79 RAP: 5.00 mmHg RVSP: 18.30 mmHg FINDINGS -------- Sinus rhythm. This was a technically adequate study. The left ventricular size is normal. Left ventricular wall thickness is normal. Overall left vent ricular systolic function is normal with, an EF between 55 - 60 %. The right ventricle is normal in size. Normal LA size by volume 22+/-6 ml/m2. The right atrium is normal in size. The aortic valve is trileaflet and appears structurally normal. The mitral valve is normal. Mild tricuspid regurgitation present. Right ventricular systolic pressure is normal at < 35 mmHg. There is no pulmonic regurgitation present. The aortic root size is normal. Normal inferior vena cava with normal inspiratory collapse consistent with estimated right atrial pre ssure of 5 mmHg. There is no pericardial effusion. CONCLUSIONS -------- 1. Sinus rhythm. 2. This was a technically adequate study. 3. The left ventricular size is normal. 4. Left ventricular wall thickness is normal. 5. Overall left ventricular systolic function is normal with, an EF between 55 - 60 %. 6. The right ventricle is normal in size. 7. Normal LA size by volume 22+/-6 ml/m2. 8. The right atrium is normal in size. 9. The aortic valve is trileaflet and appears structurally normal. 10. The mitral valve is normal. 11. Mild tricuspid regurgitation present. 12. Right ventricular systolic pressure is normal at < 35 mmHg. 13. There is no pulmonic regurgitation present. 14. The aortic root size is normal. 15. Normal inferior vena cava with normal inspiratory collapse consistent with estimated right atrial pressure of 5 mmHg. 16. There is no pericardial effusion. ESTIMATE CLERK: DEANGELO Turk
--- NOTE | 2018-02-15 12:16 | P.CN ---
Psychiatric Consult - . Consult date: 02/15/18 Consult:: 02/15/18 09:46 Alzheimer and aggression Assessment and Plan Assessment: Initial comments: 82-year-old female presenting for evaluation of slurred speech and left-sided weakness. Patient does have some baseline dementia however she is typically alert and oriented 4. Symptom onset began at approximately 11:30. EMS report onset at 1145, further history obtained from the patient's family who was able to communicate with the [place] [facility] and best time course is onset at 11:30 AM this morning. Patient is alert, has no complaints. Denies headache. She is not on any blood thinners. No history of trauma. No seizure-like activity Past Medical History Past Medical History: Dementia, Eye Disorder, Thyroid Disorder Additional Past Medical History / Comment(s): OSTEOPOROSIS, CHRONIC LOW VIT-D, VAGINAL DELIVERY X3, GLAUCOMA, HYPOTHYROID, DIVERTICULITIS, past HOSPITALIZATION FOR HYPERTHYROID "I THINK SHE MAY HAVE TAKEN TOO MUCH THYROID MEDICATION" PER DAUGHTER. past fall/rt broken femur(sx done),had pne vaccine in past unsure of date, press writer unable to verify date at time of admit History of Any Multi-Drug Resistant Organisms: None Reported Past Surgical History: Cholecystectomy, Hysterectomy Additional Past Surgical History / Comment(s): rt hip hemiarthroplasty Past Anesthesia/Blood Transfusion Reactions: Previous Problems w/ Anesthesia Additional Past Anesthesia/Blood Transfusion Reaction / Comment(s): PER DAUGHTER , "SHE ARRESTED IN SURGERY AFTER HAVING SODIUM PENTATHOL". Past Psychological History: No Psychological Hx Reported Additional Psychological History / Comment(s): DEMENTIA Smoking Status: Never smoker Past Alcohol Use History: Occasional Additional Past Alcohol Use History / Comment(s): started age 9 quit age 19."i can't rememebr how much i smoked" Past Drug Use History: None Reported - Past Family History Mother History Unknown: Yes Family Medical History: Unable to Obtain Father Family Medical History: Unable to Obtain Medications and Allergies Home Medications Medication Instructions Recorded Confirmed Type Levothyroxine Sodium [Synthroid] 88 mcg PO DAILY 11/04/16 02/14/18 History Rivastigmine 9.5MG/24Hr Patch 1 patch TRANSDERM DAILY 11/04/16 02/14/18 History [Exelon 9.5MG/24Hr Patch] Cholecalciferol [Vitamin D3] 2,000 unit PO DAILY #1 tablet 11/07/16 02/14/18 Rx Artificial Tears-Hypromellose 1 drops BOTH EYES TID PRN 02/14/18 02/14/18 History [Artificial Tear Drops] Ascorbic Acid [Vitamin C] 500 mg PO DAILY 02/14/18 02/14/18 History Calcitonin Nasal [Fortical 1 spray NASAL DIRECTED 02/14/18 02/14/18 History (Miacalcin)] Colloidal Oatmeal [Eucerin Eczema 1 applic TOPICAL DAILY PRN 02/14/18 02/14/18 History Relief] Cyanocobalamin (Vitamin B-12) 1,000 mcg PO DAILY 02/14/18 02/14/18 History [Vitamin B-12] Ferrous Sulfate [Feosol] 325 mg PO TID 02/14/18 02/14/18 History Ibandronate Sodium 150 mg PO QMONTH 02/14/18 02/14/18 History LORazepam ORAL CONC [Ativan 1 mg PO DAILY PRN 02/14/18 02/14/18 History Intensol] LORazepam [Ativan] 0.5 mg PO BID 02/14/18 02/14/18 History Melatonin 5 mg PO HS 02/14/18 02/14/18 History Mirtazapine 7.5 mg PO HS 02/14/18 02/14/18 History Multivitamins, Thera [Multivitamin 1 tab PO DAILY 02/14/18 02/14/18 History (formulary)] QUEtiapine [SEROquel] 50 mg PO QAM 02/14/18 02/14/18 History QUEtiapine [SEROquel] 100 mg PO HS 02/14/18 02/14/18 History Sennosides [Senna] 8.6 mg PO HS 02/14/18 02/14/18 History traMADol HCl [Ultram] 50 mg PO BID PRN 02/14/18 02/14/18 History Allergies Allergy/AdvReac Type Severity Reaction Status Date / Time thiopental [From Pentothal] AdvReac Anaphylaxis Verified 02/14/18 14:04 Mental Status Examination - This is a 82-year-old female lying unresponsive . She is not able to participate mental status examination Clinical impression and diagnosis: Post stroke, delirium Psychiatric recommendations: I highly recommend stopping her Seroquel tramadol mirtazapine and her Rivastigmine patch until she is able to participate in neuropsychiatric examination. In addition I would hold her melatonin. Raf Ortiz D.O. PhD attending psychiatrist Betito Millan (1) Aggression Current Visit: Yes Status: Acute Priority: Low Code(s): R46.89 - OTHER SYMPTOMS AND SIGNS INVOLVING APPEARANCE AND BEHAVIOR SNOMED Code(s): 72222580 (2) Dementia Current Visit: Yes Status: Acute Priority: Low Code(s): F03.90 - UNSPECIFIED DEMENTIA WITHOUT BEHAVIORAL DISTURBANCE SNOMED Code(s): 22829654 Plan: As outlined above hold her psychiatric medications until further notice
--- NOTE | 2018-02-15 17:00 | MR ---
EXAMINATION TYPE: MR brain wo con DATE OF EXAM: 02/15/2018 COMPARISON: None HISTORY: Patient with atrial fib and new onset left leg weakness Standard multiplanar, multisequence MRI departmental protocol Multiplanar, multisequence images of the brain were acquired. Diffusion weighted imaging was performe d. FINDINGS: There is cerebral cortical atrophy. There is no mass effect nor midline shift. There is no evidence of intracranial hemorrhage. There is coalescent increased signal in the periventricular whit e matter in both cerebral hemispheres. This extends into the centrum semiovale bilaterally as well. T here is mild thinning of the corpus callosum. The brainstem is intact. The sella turcica appears inta ct. I see no evidence of a cortical infarct. IMPRESSION: Cerebral atrophy. Diffuse white matter changes consistent with chronic small vessel ischemia. Demyeli nating disease is also possible. No cortical infarct.
[2018-02-15] MEDS ORDERED: LORazepam 0.5 MG TAB PO PRN (17:28)
[2018-02-15] MEDS: APIXABAN 2.5 MG TABLET PO SCH (18:30)
[2018-02-15] MEDS: MULTIVITAMINS, THERA 1 EACH TAB PO SCH (18:30)
[2018-02-15] MEDS: RIVASTIGMINE 9.5MG/24HR PATCH TRANSDERM SCH (18:30)
[2018-02-15] MEDS ORDERED: INFLUENZA VACCINE (6 MOS+) 60 MCG/0.5 ML SYRINGE IM ONE (18:43)
[2018-02-15 19:15] VITALS: RESP 16
[2018-02-15] MEDS ORDERED: ATORVASTATIN 10 MG TAB PO SCH (21:00)
[2018-02-15] MEDS: MIRTAZAPINE 15 MG TAB PO SCH (21:04)
[2018-02-15] MEDS: DORZOLAMIDE HCL 2% DROPS 10 ML BTL BOTH EYES SCH ×2 (21:04→21:16)
[2018-02-15] MEDS: MELATONIN 5 MG TABLET PO SCH (21:04)
[2018-02-15] MEDS: SENNOSIDES 8.6 MG TAB PO SCH (21:05)
[2018-02-16] MEDS: PANTOPRAZOLE 40 MG TABLET PO SCH (06:28)
[2018-02-16 06:56] LABS: Basophils % (A) 1 %; Eosinophils # (A) 0.2 k/uL (0-0.7); Eosinophils % (A) 5 %; HCT 35.3 % (34.0-46.0); HGB 11.8 gm/dL (11.4-16.0); Lymphocytes # (A) 1.5 k/uL (1.0-4.8); Lymphocytes % (A) 32 %; MCH 31.6 pg (25.0-35.0); MCHC 33.3 g/dL (31.0-37.0); MCV 94.7 fL (80.0-100.0); Mean Platelet Volume 8.2; Monocytes # (A) 0.3 k/uL (0-1.0); Monocytes % (A) 6 %; Neutrophils # (A) 2.6 k/uL (1.3-7.7); Neutrophils % (A) 54 %; Platelet Count 207 k/uL (150-450); RBC 3.73 m/uL (3.80-5.40); RDW 13.2 % (11.5-15.5); WBC 4.8 k/uL (3.8-10.6)
[2018-02-16 07:24] LABS: Calcium 9.5 mg/dL (8.4-10.2); Potassium 4.4 mmol/L (3.5-5.1)
[2018-02-16] MEDS: DORZOLAMIDE HCL 2% DROPS 10 ML BTL BOTH EYES SCH (08:47)
[2018-02-16] MEDS: APIXABAN 2.5 MG TABLET PO SCH (08:48)
[2018-02-16] MEDS: QUEtiapine 50 MG TAB PO SCH (08:48)
[2018-02-16] MEDS: ASCORBIC ACID 500 MG TAB PO SCH (08:48)
[2018-02-16] MEDS: CHOLECALCIFEROL 1,000 UNIT TAB PO SCH (08:48)
[2018-02-16] MEDS: CYANOCOBALAMIN 500 MCG TAB PO SCH (08:48)
[2018-02-16] MEDS: RIVASTIGMINE 9.5MG/24HR PATCH TRANSDERM SCH (08:48)
[2018-02-16] MEDS: FERROUS SULFATE 325 MG TAB PO SCH (08:48)
[2018-02-16] MEDS ORDERED: CALCITONIN 200 USP/1 NASAL SPRAY 3.7ML BTL NASAL SCH (09:00)
[2018-02-16] MEDS: MULTIVITAMINS, THERA 1 EACH TAB PO SCH (12:15)
--- NOTE | 2018-02-16 12:22 | P.PN ---
Subjective Progress Note Date: 02/16/18 This is a pleasant 82-year-old female with past medical history significant for dementia, osteoporosis, hypothyroidism, who resides in an adult foster longterm. He was noted yesterday that the patient had a left-sided weakness with associated slurring of speech and for this reason the patient was taken to the emergency room here at [facility] for further evaluation.initial EKG on presentation here showed atrial fibrillation with conversion to normal sinus rhythm. The patient continues to be in a normal sinus rhythm this morning. CAT scan of the brain did not reveal any acute intracranial hemorrhage or midline shift. Also severe injury of the left basal ganglia an age indeterminant listener injury of the right external capsule. Diffuse age-related cerebral atrophy and chronic small vessel ischemia is noted. Chest x-ray did not reveal any acute cardiopulmonary process. CT angio of the head and neck was performed which did not reveal any evidence of large vessel vascular occlusion of the head or neck. No evidence of intracranial aneurysm. At the time of my examination, patient is resting comfortably in bed. She is somewhat agitated. Refusing physical exam. However she does state that she feels well this morning. Denies any chest discomfort, shortness of breath or palpitations. Objective - Vital Signs Vital signs: Vital Signs Temp 96.9 F L 02/16/18 00:00 Pulse 68 02/16/18 04:00 Resp 16 02/16/18 04:00 BP 111/65 02/16/18 04:00 Pulse Ox 97 02/16/18 04:00 Intake & Output 02/15/18 02/16/18 02/16/18 18:59 06:59 18:59 Intake Total 538 240 Output Total 400 350 Balance 138 -350 240 Intake: Oral 538 240 Output: Urine 400 350 Other: Voiding Method Bedside Commode Bedside Commode # Voids 1 - Exam Patient refusing physical exam. Appears to be in no acute distress. - Labs CBC & Chem 7: 02/16/18 06:32 02/16/18 06:32 Labs: Abnormal Lab Results - Last 24 Hours (Table) 02/16/18 02/16/18 Range/Units 06:32 06:32 RBC 3.73 L (3.80-5.40) m/uL BUN 20 H (7-17) mg/dL Creatinine 1.12 H (0.52-1.04) mg/dL Assessment and Plan Assessment: #1 left-sided weakness with associated slurring of speech, possible TIA. #2 advanced dementia #3 hypothyroidism #4 degenerative joint disease #5 paroxysmal atrial fibrillation, currently in normal sinus rhythm Plan: From [employer] Expert perspective, continue anticoagulation for stroke prevention. The patient may be discharged home today. She'll follow-up in the office with Dr. Banda in about one to 2 weeks. SEQUINS SPOOLER note has been reviewed, I agree with a documented findings and plan of care. Patient was seen and examined.
[2018-02-16 12:28] VITALS: BP 118/62; PULSE 67; TEMP 97.5
--- NOTE | 2018-02-19 11:13 | DS ---
DISCHARGE SUMMARY DATE OF SERVICE: 02/15/2018 FINAL DIAGNOSES: 1. Slurring of speech and weakness, possible right-sided transient ischemic attack, rule out acute stroke. 2. Paroxysmal atrial fibrillation. 3. History of dementia. 4. Hypothyroidism. 5. Osteoporosis. 6. Degenerative joint disease. 7. History of glaucoma. 8. History of diverticulitis. 9. History of dementia. 10.Cholecystectomy history. DISCHARGE DISPOSITION: The patient will be discharge in a stable condition with guarded prognosis. HISTORY OF PRESENT ILLNESS: This is an 82-year-old woman with a past medical history was admitted with dysarthria, weakness and features of TIA. MRI was reviewed. There is no acute stroke seen by Neurology and Cardiology. The patient will be discharged in stable condition with guarded prognosis. Psychiatry also saw the patient during the hospitalist stay. Please refer to the respiratory consultation for more details. On exam, vitals are stable. CARDIOVASCULAR SYSTEM: S1, S1. ABDOMEN: Soft. NERVOUS SYSTEM: No focal deficits. DISCHARGE ADVICE: Diet is cardiac. Activity limited until followup. Follow up with Dr. Angela Bullock in 2-3 days. Follow up with Neurology and Cardiology as recommended. MEDICATIONS ARE:: 1. Artificial Tears 1 drop both eyes daily. 2. Vitamin C 500 mg daily. 3. Calcitonin 1 spray nasally. 4. Colloidal oatmeal. 5. Vitamin B 12,000 mg b.i.d. 6. Iron sulfate 325 mg daily. 7. Ibandronate 150 mg p.o. q. monthly. 8. Synthroid 18 mcg p.o. daily. 9. Melatonin 5 mg q.h.s. 10.Remeron 7.5 mg q.h.s. 11.Multivitamins 1 p.o. daily. 12.Seroquel 100 mg q.h.s. 13.Seroquel 50 mg q.a.m. 14.Rivastigmine 9.5 mg per 24 hour patch 1 patch daily. 15.Senna 8.6 mg q.h.s. 16.Ultram 50 mg b.i.d. p.r.n. 17.Tylenol 650 q.6 p.r.n. 18.Eliquis 2.5 mg p.o. b.i.d. 19.Lipitor 10 mg q.h.s. 20.Vitamin D3 two thousand daily. 21.Trusopt 2% 1 drop both eyes. 22.Ativan 0.5 mg b.i.d. p.r.n. Once again, the patient will be discharged in a stable condition with guarded prognosis. MMOZL / SAMMIN: [id number] /
== END 2018-02-16 12:49 | disposition home health service (06) | DRG 65 ==
LOC: EC 12:26 → 3SCARD 14:20
PROVIDERS: ADMIT Hospitalist; ATTEND Hospitalist
DX: I63.9 Cerebral infarction, unspecified (principal); G81.94 Hemiplegia, unspecified affecting left nondominant side; I48.0 Paroxysmal atrial fibrillation; R47.81 Slurred speech; H40.9 Unspecified glaucoma; M81.0 Age-related osteoporosis without current pathological fracture; R29.704 NIHSS score 4; E55.9 Vitamin D deficiency, unspecified; E03.9 Hypothyroidism, unspecified; R47.02 Dysphasia; R29.810 Facial weakness; F03.90 Unspecified dementia, unspecified severity, without behavioral disturbance, psychotic disturbance, mood disturbance, and anxiety; M19.90 Unspecified osteoarthritis, unspecified site; Z88.6 Allergy status to analgesic agent; Z88.8 Allergy status to other drugs, medicaments and biological substances; Z79.890 Hormone replacement therapy; Z79.899 Other long term (current) drug therapy; Z90.710 Acquired absence of both cervix and uterus; Z90.49 Acquired absence of other specified parts of digestive tract; Z87.891 Personal history of nicotine dependence
CPT/HCPCS: 36415; 70450; 70496; 70498; 70551; 71046; 80048; 80053; 80061; 81001; 82550; 82553; 84443; 84484; 85025; 85610; 85730; 90686; 93005; 93306; 99285

== ENCOUNTER 2018-03-12 10:17 | Emergency (ER) | payer MEDICARE, OTHER ==
[2018-03-12 10:34] VITALS: TEMP 98.7
--- NOTE | 2018-03-12 10:38 | ED ---
General Adult HPI - General Chief complaint: Fall Stated complaint: Fall Time Seen by Provider: 03/12/18 10:25 Source: patient, EMS, RN notes reviewed Mode of arrival: EMS Limitations: altered mental status, physical limitation - History of Present Illness Initial comments: This is an 82-year-old female presents emergency department after having had a fall in the bathroom. According to people at the facility they heard her fall he went to the bathroom she was not unconscious she was not dazed. Patient complaints except for a little bit of right wrist pain. Patient states she does not know why she fell. Patient is a patient with dementia. Patient denies head pain patient denies any neck pain. Patient denies any chest pain palpitations difficulty breathing shortness of breath. Patient denies any other extremity pain aside from the right wrist pain even now she's not sure exactly where the right wrist pain is. Patient denies any abdominal pain patient denies any recent fever chills or cough. Patient denies being dizzy lightheaded or having a near syncopal episode. Patient denies any palpitations. - Related Data Home Medications Medication Instructions Recorded Confirmed Levothyroxine Sodium [Synthroid] 88 mcg PO DAILY 11/04/16 03/12/18 Rivastigmine 9.5MG/24Hr Patch 1 patch TRANSDERM DAILY 11/04/16 03/12/18 [Exelon 9.5MG/24Hr Patch] Artificial Tears-Hypromellose 1 drops BOTH EYES QID 02/14/18 03/12/18 [Artificial Tear Drops] Ascorbic Acid [Vitamin C] 500 mg PO DAILY 02/14/18 03/12/18 Calcitonin Nasal [Fortical 1 spray NASAL DIRECTED 02/14/18 03/12/18 (Miacalcin)] Colloidal Oatmeal [Eucerin Eczema 1 applic TOPICAL DAILY PRN 02/14/18 03/12/18 Relief] Cyanocobalamin (Vitamin B-12) 1,000 mcg PO DAILY 02/14/18 03/12/18 [Vitamin B-12] Ferrous Sulfate [Iron (65 MG 325 mg PO TID 02/14/18 03/12/18 Elemental)] Ibandronate Sodium 150 mg PO QMONTH 02/14/18 03/12/18 Melatonin 5 mg PO HS 02/14/18 03/12/18 Mirtazapine 7.5 mg PO HS 02/14/18 03/12/18 Multivitamins, Thera [Multivitamin 1 tab PO DAILY 02/14/18 03/12/18 (formulary)] QUEtiapine [SEROquel] 50 mg PO QAM 02/14/18 03/12/18 QUEtiapine [SEROquel] 100 mg PO HS 02/14/18 03/12/18 Sennosides [Senna] 8.6 mg PO HS 02/14/18 03/12/18 traMADol HCl [Ultram] 50 mg PO BID PRN 02/14/18 03/12/18 Dorzolamide 2% [Trusopt 2%] 1 drops BOTH EYES BID 03/12/18 03/12/18 LORazepam [Ativan] 0.25 mg PO BID 03/12/18 03/12/18 Lactose-Reduced Food [Boost Plus] 237 ml PO TID 03/12/18 03/12/18 Previous Rx's Medication Instructions Recorded Cholecalciferol [Vitamin D3] 2,000 unit PO DAILY #1 tablet 11/07/16 Apixaban [Eliquis] 2.5 mg PO BID #60 tablet 02/15/18 Atorvastatin [Lipitor] 10 mg PO HS #30 tab 02/15/18 LORazepam ORAL CONC [Ativan 0.5 mg PO DAILY PRN #0 02/15/18 Intensol] Allergies Allergy/AdvReac Type Severity Reaction Status Date / Time thiopental [From Pentothal] AdvReac Anaphylaxis Verified 03/12/18 10:45 Review of Systems ROS Statement: Those systems with pertinent positive or pertinent negative responses have been documented in the HPI. ROS Other: All systems not noted in ROS Statement are negative. Past Medical History Past Medical History: Dementia, Eye Disorder, Thyroid Disorder Additional Past Medical History / Comment(s): OSTEOPOROSIS, CHRONIC LOW VIT-D, VAGINAL DELIVERY X3, GLAUCOMA, HYPOTHYROID, DIVERTICULITIS, past fall/rt broken femur(sx done), History of Any Multi-Drug Resistant Organisms: None Reported Past Surgical History: Cholecystectomy, Hysterectomy Additional Past Surgical History / Comment(s): rt hip hemiarthroplasty Past Anesthesia/Blood Transfusion Reactions: Previous Problems w/ Anesthesia Additional Past Anesthesia/Blood Transfusion Reaction / Comment(s): PER DAUGHTER , "SHE ARRESTED IN SURGERY AFTER HAVING SODIUM PENTATHOL". Past Psychological History: No Psychological Hx Reported Smoking Status: Never smoker Past Alcohol Use History: Occasional Past Drug Use History: None Reported - Past Family History Mother History Unknown: Yes Family Medical History: Unable to Obtain Father Family Medical History: Unable to Obtain General Exam - General Exam Comments Initial Comments: GENERAL: Patient is well-developed and well-nourished. Patient is nontoxic and well- hydrated and is in mild distress. No obvious signs of any head trauma ENT: Neck is soft and supple. No significant lymphadenopathy is noted. Oropharynx is clear. Moist mucous membranes. Neck has full range of motion without eliciting any pain. EYES: The sclera were anicteric and conjunctiva were pink and moist. Extraocular movements were intact and pupils were equal round and reactive to light. Eyelids were unremarkable. PULMONARY: Unlabored respirations. Good breath sounds bilaterally. No audible rales rhonchi or wheezing was noted. CARDIOVASCULAR: There is a regular rate and rhythm without any murmurs gallops or rubs. ABDOMEN: Soft and nontender with normal bowel sounds. SKIN: Skin is clear with no lesions or rashes and otherwise unremarkable. NEUROLOGIC: Patient is alert and oriented 2. Cranial nerves II through XII are grossly intact. Motor and sensory are also intact. Normal speech, volume and content. Symmetrical smile. MUSCULOSKELETAL: Normal extremities with adequate strength and full range of motion. Right wrist has minimal medial wrist pain. LYMPHATICS: No significant lymphadenopathy is noted PSYCHIATRIC: Normal psychiatric evaluation. Limitations: altered mental status, physical limitation Course Vital Signs 03/12/18 03/12/18 10:27 12:58 Temperature 98.7 F Pulse Rate 73 62 Respiratory 18 16 Rate Blood Pressure 120/86 143/77 O2 Sat by Pulse 97 98 Oximetry Procedures - Laceration Laceration #1 Consent Obtained: verbal consent Indication: laceration Site: scalp Description: linear Size of Sutures: other (Staple times one) Medical Decision Making - Medical Decision Making EKG shows sinus rhythm with occasional PVC at 69 bpm ID interval 190 QRS is 86 Q -T intervals 414 QTC is 443 per patient's EKG shows no ST segment elevation or depression or T wave abnormalities are noted. CT of the brain and C-spine showed no acute abnormality. Right wrist x-ray showed no acute abnormality. I went back and reevaluated the patient at this time she had no complaint other than she wants to see her family. I discharge the patient at 1237 however the patient was in the ER for almost 2 more hours and she eventually crawled out of bed fell and hit her head. At this point time I reevaluated the patient at noticed a lack of the back of her head I put her in a c-collar on a Center for CAT scan. Repeat CAT scan was normal. I put [address] for the laceration on the scalp. - Lab Data Result diagrams: 03/12/18 11:03/12/18 11: Lab Results 03/12/18 03/12/18 Range/Units 11: 11: WBC 4.2 (3.8-10.6) k/uL RBC 3.79 L (3.80-5.40) m/uL Hgb 12.1 (11.4-16.0) gm/dL Hct 36.2 (34.0-46.0) % MCV 95.6 (80.0-100.0) fL MCH 31.9 (25.0-35.0) pg MCHC 33.4 (31.0-37.0) g/dL RDW 13.3 (11.5-15.5) % Plt Count 205 (150-450) k/uL Neutrophils % 55 % Lymphocytes % 29 % Monocytes % 7 % Eosinophils % 5 % Basophils % 1 % Neutrophils # 2.3 (1.3-7.7) k/uL Lymphocytes # 1.2 (1.0-4.8) k/uL Monocytes # 0.3 (0-1.0) k/uL Eosinophils # 0.2 (0-0.7) k/uL Basophils # 0.1 (0-0.2) k/uL Sodium 141 (137-145) mmol/L Potassium 4.9 (3.5-5.1) mmol/L Chloride 109 H (98-107) mmol/L Carbon Dioxide 25 (22-30) mmol/L Anion Gap 7 mmol/L BUN 17 (7-17) mg/dL Creatinine 1.06 H (0.52-1.04) mg/dL Est GFR (CKD-EPI)AfAm 56 (>60 ml/min/1.73 sqM) Est GFR (CKD-EPI)NonAf 49 (>60 ml/min/1.73 sqM) Glucose 93 (74-99) mg/dL Calcium 9.2 (8.4-10.2) mg/dL Total Bilirubin 0.7 (0.2-1.3) mg/dL AST 33 (14-36) U/L ALT 20 (9-52) U/L Alkaline Phosphatase 35 L (38-126) U/L Total Protein 7.2 (6.3-8.2) g/dL Albumin 3.9 (3.5-5.0) g/dL Disposition Clinical Impression: Fall, Wrist contusion Disposition: HOME SELF-CARE Instructions: Fall Prevention for Older Adults (ED) Is patient prescribed a controlled substance at d/c from ED?: No Referrals: Angela Bullock MD [Primary Care Provider] - 1-2 days Time of Disposition: 12:37
--- NOTE | 2018-03-12 11:19 | XR ---
EXAMINATION TYPE: XR wrist complete RT DATE OF EXAM: 03/12/2018 CLINICAL HISTORY: Right wrist pain after fall TECHNIQUE: Frontal, lateral and oblique images of the right wrist are obtained. Scaphoid view was al so obtained. COMPARISON: 11/04/2016 FINDINGS: There is no acute fracture/dislocation evident in the right wrist. The joint spaces in th e right wrist appear within normal limits. The overlying soft tissue appears unremarkable. There is diffuse osseous demineralization seen. Mild degenerative changes of the first carpometacarpal joint a re noted as joint space narrowing. IMPRESSION: There is no acute fracture or dislocation in the right wrist.
[2018-03-12 11:45] LABS: Basophils # (A) 0.1 k/uL (0-0.2); Basophils % (A) 1 %; Eosinophils # (A) 0.2 k/uL (0-0.7); Eosinophils % (A) 5 %; HCT 36.2 % (34.0-46.0); HGB 12.1 gm/dL (11.4-16.0); Lymphocytes # (A) 1.2 k/uL (1.0-4.8); Lymphocytes % (A) 29 %; MCH 31.9 pg (25.0-35.0); MCHC 33.4 g/dL (31.0-37.0); MCV 95.6 fL (80.0-100.0); Mean Platelet Volume 8.1; Monocytes # (A) 0.3 k/uL (0-1.0); Monocytes % (A) 7 %; Neutrophils # (A) 2.3 k/uL (1.3-7.7); Neutrophils % (A) 55 %; Platelet Count 205 k/uL (150-450); RBC 3.79 m/uL (3.80-5.40); RDW 13.3 % (11.5-15.5); WBC 4.2 k/uL (3.8-10.6)
[2018-03-12 11:52] LABS: Albumin 3.9 g/dL (3.5-5.0); Calcium 9.2 mg/dL (8.4-10.2); Potassium 4.9 mmol/L (3.5-5.1); Total Bilirubin 0.7 mg/dL (0.2-1.3); Total Protein 7.2 g/dL (6.3-8.2)
--- NOTE | 2018-03-12 12:04 | CT ---
EXAMINATION TYPE: CT brain cspine wo con DATE OF EXAM: 03/12/2018 COMPARISON: 02/14/2018 HISTORY: Fall. Head and neck pain. CT DLP: 763.6 mGycm. Automated Exposure Control for Dose Reduction was Utilized. TECHNIQUE: CT scan of the head and cervical spine are performed without contrast. FINDINGS: There is no acute intracranial hemorrhage or midline shift identified. There is diffuse v entricular and sulcal prominence consistent with diffuse age-related cerebral atrophy. The ganglia c alcifications are seen bilaterally. There is confluent low-attenuation in the periventricular white m atter consistent with chronic small vessel ischemic change. The globes are intact and the visualized sinuses are clear. Scleral calcifications are incidentally noted. Cervical spine is visualized in its entirety from C1 through upper thoracic levels and demonstrates s atisfactory alignment without evidence of acute fracture or dislocation. Prevertebral soft tissue ap pears within normal limits. Minimal difficult degenerative changes of the cervical spine are seen. T he C1-C2 articulation is unremarkable. Pronounced pleural parenchymal scarring is seen bilaterally a nd overall symmetric. IMPRESSION: 1. There is no acute fracture or dislocation evident in the cervical spine. 2. No acute intracranial hemorrhage, mass effect, or midline shift is seen. 3. Age-related cerebral atrophy and confluent nonspecific white matter change that appears similar in degree to the prior of 02/14/2018. 4. Pronounced biapical pleural parenchymal scarring.
[2018-03-12 13:04] VITALS: RESP 16
--- NOTE | 2018-03-12 15:26 | CT ---
EXAMINATION TYPE: CT brain cspine wo con DATE OF EXAM: 03/12/2018 COMPARISON: CT brain and C-spine earlier the same date. HISTORY: Pain post fall post prior CT. Head and neck pain. CT DLP: 410.7 mGycm. Automated Exposure Control for Dose Reduction was Utilized. TECHNIQUE: CT scan of the head and cervical spine are performed without contrast. FINDINGS: There is no acute intracranial hemorrhage, mass effect, or midline shift identified. Th ere is diffuse ventricular and sulcal prominence consistent with diffuse age-related cerebral atrophy . The ganglia calcifications are seen bilaterally. There is confluent low-attenuation in the periven tricular white matter consistent with chronic small vessel ischemic change. Dystrophic basal ganglia calcifications are incidentally noted. The globes are intact and the visualized sinuses are clear. La rge arachnoid granulations are seen of the occipital bone. Cervical spine is visualized in its entirety from C1 through upper thoracic levels and demonstrates s atisfactory alignment without evidence of acute fracture or dislocation. Prevertebral soft tissue ap pears within normal limits. Mild multilevel degenerative disc disease of the cervical spine is presen t. The C1-C2 articulation is unremarkable. Biapical pleural-parenchymal thickening is noted. Scatter ed geographic groundglass opacities are also seen in the upper lungs that may relate to fluid overloa d or pneumonitis. IMPRESSION: 1. There is no acute fracture or dislocation evident in the cervical spine. 2. No acute intracranial hemorrhage, mass effect, or midline shift is seen. 3. Unchanged cerebral atrophy and confluent nonspecific white matter change in comparison to prior ea rlier on the same day as well as biapical pleural-parenchymal thickening.
[2018-03-12] MEDS ORDERED: DIPH,PERTUS(ACELL)TETVAC-LF 0.5 ML VIAL IM ONE (15:33)
[2018-03-12 17:02] VITALS: BP 138/77; PULSE 64
== END 2018-03-12 17:23 | disposition home or self-care (01) ==
LOC: EC 10:17
DX: S60.211A Contusion of right wrist, initial encounter (principal); S01.01XA Laceration without foreign body of scalp, initial encounter; I49.3 Ventricular premature depolarization; F03.90 Unspecified dementia, unspecified severity, without behavioral disturbance, psychotic disturbance, mood disturbance, and anxiety; E03.9 Hypothyroidism, unspecified; H40.9 Unspecified glaucoma; M81.0 Age-related osteoporosis without current pathological fracture; Z88.8 Allergy status to other drugs, medicaments and biological substances; Z79.899 Other long term (current) drug therapy; Z23 Encounter for immunization; W06.XXXA Fall from bed, initial encounter; W19.XXXA Unspecified fall, initial encounter; Y92.091 Bathroom in other non-institutional residence as the place of occurrence of the external cause
CPT/HCPCS: 12001; 36415; 70450; 72125; 80053; 85025; 90471; 90715; 93005; 99284

== ENCOUNTER → 2018-06-06 | Outpatient (CLI) | payer MEDICARE, OTHER ==
--- NOTE | 2018-06-06 23:27 | CT ---
EXAMINATION TYPE: CT brain wo con DATE OF EXAM: 06/06/2018 HISTORY: Dementia w/o behavior / Recurrent falls CT DLP: 1121 mGycm. Automated Exposure Control for Dose Reduction was Utilized. TECHNIQUE: CT scan of the head is performed without contrast. COMPARISON: CT brain March 12, 2018. FINDINGS: There is no acute intracranial hemorrhage or midline shift identified. There is diffuse v entricular and sulcal prominence consistent with diffuse age-related cerebral atrophy. There is low- attenuation in the periventricular white matter consistent with chronic small vessel ischemic change. Scleral calcification both globes are redemonstrated. Visualized paranasal sinuses are grossly malgorzata r. Bilateral basal ganglia calcifications are redemonstrated. IMPRESSION: No acute intracranial hemorrhage or midline shift. There is [id number] diffuse ag e-related cerebral atrophy and more moderate chronic small vessel ischemic change redemonstrated with out significant interval change.
== END | disposition home or self-care (01) ==
LOC: RADCTMAIN 16:19
PROVIDERS: ATTEND Psychiatry & Neurology Neurology
DX: G31.1 Senile degeneration of brain, not elsewhere classified (principal); I67.82 Cerebral ischemia
CPT/HCPCS: 70450

== ENCOUNTER 2018-08-09 23:33 | Emergency (ER) | payer MEDICARE, OTHER ==
[2018-08-09 23:40] VITALS: BP 116/64; RESP 16
[2018-08-09] MEDS ORDERED: SODIUM CHLORIDE 0.9% 1,000 ML IV STA (23:53)
[2018-08-10 00:08] LABS: Basophils # (A) 0.1 k/uL (0-0.2); Basophils % (A) 0 %; Eosinophils # (A) 0.1 k/uL (0-0.7); Eosinophils % (A) 1 %; HCT 36.4 % (34.0-46.0); HGB 11.8 gm/dL (11.4-16.0); Lymphocytes # (A) 1.2 k/uL (1.0-4.8); Lymphocytes % (A) 7 %; MCH 31.2 pg (25.0-35.0); MCHC 32.4 g/dL (31.0-37.0); MCV 96.3 fL (80.0-100.0); Mean Platelet Volume 8.3; Monocytes # (A) 0.6 k/uL (0-1.0); Monocytes % (A) 4 %; Neutrophils # (A) 14.6 k/uL (1.3-7.7); Neutrophils % (A) 87 %; Platelet Count 225 k/uL (150-450); RBC 3.78 m/uL (3.80-5.40); RDW 13.3 % (11.5-15.5); WBC 16.7 k/uL (3.8-10.6)
[2018-08-10 00:18] LABS: INR 1.1 (<1.2); Partial Thromboplastin Time 24.5 sec (22.0-30.0); Prothrombin Time 11.4 sec (9.0-12.0)
[2018-08-10 00:20] LABS: Albumin 4.1 g/dL (3.5-5.0); Calcium 9.3 mg/dL (8.4-10.2); Potassium 3.7 mmol/L (3.5-5.1); Total Bilirubin 0.5 mg/dL (0.2-1.3); Total Protein 7.1 g/dL (6.3-8.2)
--- NOTE | 2018-08-10 00:25 | XR ---
EXAM: XR Chest, 2 Views CLINICAL HISTORY: ITS.REASON XR Reason: syncope TECHNIQUE: Frontal and lateral views of the chest. COMPARISON: No relevant prior studies available. FINDINGS: Lungs: Unremarkable. No consolidation. Pleural space: Unremarkable. No pneumothorax. Heart: Unremarkable. No cardiomegaly. Mediastinum: Unremarkable. Bones/joints: No acute fracture. IMPRESSION: No acute findings.
--- NOTE | 2018-08-10 01:03 | ED ---
Syncope HPI - General Chief Complaint: Syncope Stated Complaint: Syncope Source: patient, EMS Mode of arrival: EMS - History of Present Illness Initial Comments: Lisa is a pleasant 83 yo female who presents to the ER this evening via EMS for evaluation of an apparent syncopal episode. Patient ate a large meal at dinner, she subsequently developed some nausea, vomiting and had a wittnessed syncopal episode upon standing from the toilet. She did not strike her head or have any trauma. She immediately regained consciousness, denied headache, chest pain, palpitations or discomfort. Decision was made to send her to the ER for further evaluation. - Related Data Home Medications Medication Instructions Recorded Confirmed Levothyroxine Sodium [Synthroid] 88 mcg PO DAILY 11/04/16 03/12/18 Rivastigmine 9.5MG/24Hr Patch 1 patch TRANSDERM DAILY 11/04/16 03/12/18 [Exelon 9.5MG/24Hr Patch] Artificial Tears-Hypromellose 1 drops BOTH EYES QID 02/14/18 03/12/18 [Artificial Tear Drops] Ascorbic Acid [Vitamin C] 500 mg PO DAILY 02/14/18 03/12/18 Calcitonin Nasal [Fortical 1 spray NASAL DIRECTED 02/14/18 03/12/18 (Miacalcin)] Colloidal Oatmeal [Eucerin Eczema 1 applic TOPICAL DAILY PRN 02/14/18 03/12/18 Relief] Cyanocobalamin (Vitamin B-12) 1,000 mcg PO DAILY 02/14/18 03/12/18 [Vitamin B-12] Ferrous Sulfate [Iron (65 MG 325 mg PO TID 02/14/18 03/12/18 Elemental)] Ibandronate Sodium 150 mg PO QMONTH 02/14/18 03/12/18 Melatonin 5 mg PO HS 02/14/18 03/12/18 Mirtazapine 7.5 mg PO HS 02/14/18 03/12/18 Multivitamins, Thera [Multivitamin 1 tab PO DAILY 02/14/18 03/12/18 (formulary)] QUEtiapine [SEROquel] 50 mg PO QAM 02/14/18 03/12/18 QUEtiapine [SEROquel] 100 mg PO HS 02/14/18 03/12/18 Sennosides [Senna] 8.6 mg PO HS 02/14/18 03/12/18 traMADol HCl [Ultram] 50 mg PO BID PRN 02/14/18 03/12/18 Dorzolamide 2% [Trusopt 2%] 1 drops BOTH EYES BID 03/12/18 03/12/18 LORazepam [Ativan] 0.25 mg PO BID 03/12/18 03/12/18 Lactose-Reduced Food [Boost Plus] 237 ml PO TID 03/12/18 03/12/18 Previous Rx's Medication Instructions Recorded Cholecalciferol [Vitamin D3] 2,000 unit PO DAILY #1 tablet 11/07/16 Apixaban [Eliquis] 2.5 mg PO BID #60 tablet 02/15/18 Atorvastatin [Lipitor] 10 mg PO HS #30 tab 02/15/18 LORazepam ORAL CONC [Ativan 0.5 mg PO DAILY PRN #0 02/15/18 Intensol] Allergies Allergy/AdvReac Type Severity Reaction Status Date / Time thiopental [From Pentothal] AdvReac Anaphylaxis Verified 03/12/18 10:45 Review of Systems ROS Statement: Those systems with pertinent positive or pertinent negative responses have been documented in the HPI. Limitations: ROS unobtainable due to patients medical condition (dementia) Past Medical History Past Medical History: Dementia, Eye Disorder, Thyroid Disorder Additional Past Medical History / Comment(s): OSTEOPOROSIS, CHRONIC LOW VIT-D, VAGINAL DELIVERY X3, GLAUCOMA, HYPOTHYROID, DIVERTICULITIS, past fall/rt broken femur(sx done), History of Any Multi-Drug Resistant Organisms: None Reported Past Surgical History: Cholecystectomy, Hysterectomy Additional Past Surgical History / Comment(s): rt hip hemiarthroplasty Past Anesthesia/Blood Transfusion Reactions: Previous Problems w/ Anesthesia Additional Past Anesthesia/Blood Transfusion Reaction / Comment(s): PER DAUGHTER, "SHE ARRESTED IN SURGERY AFTER HAVING SODIUM PENTATHOL". Past Psychological History: No Psychological Hx Reported Smoking Status: Never smoker Past Alcohol Use History: Occasional Past Drug Use History: None Reported - Past Family History Mother History Unknown: Yes Family Medical History: Unable to Obtain Father Family Medical History: Unable to Obtain General Exam - General Exam Comments Initial Comments: Physical Exam GENERAL: Patient is well-developed and well-nourished. Patient is nontoxic and well-hydrated and is in no distress. HENT: Normocephalic, Atraumatic. EYES: PERRL, EOMI PULMONARY: Unlabored respirations. No audible rales rhonchi or wheezing was noted. CARDIOVASCULAR: There is a regular rate and rhythm ABDOMEN: Soft and nontender with normal bowel sounds. SKIN: Skin is pale, no lesions or rashes and otherwise unremarkable. : Deferred NEUROLOGIC: Patient is alert and oriented to person, confused about location and events, recognizes daughter at bedside MUSCULOSKELETAL: Normal extremities with adequate strength and full range of motion. No lower extremity swelling or edema. No calf tenderness. PSYCHIATRIC: Normal psychiatric evaluation. Limitations: no limitations Course Vital Signs 08/09/18 23:35 Temperature 98.1 F Pulse Rate 68 Respiratory 16 Rate Blood Pressure 116/64 O2 Sat by Pulse 97 Oximetry EKG Findings - EKG Comments: EKG Findings:: EKG was obtained at 2341, rate is 68 rhythm is sinus there is a normal axis, there are normal intervals, SC 174, curious 86, QTC [address] elevations or depressions is no evidence of acute ischemia or infarction Medical Decision Making - Medical Decision Making was seen and evaluated history was obtained from EMS and the patient's daughter at bedside, patient's daughter had been with her mother at dinnertime and is very familiar with the patient's medical care as she is a dictation herself. Patient had eaten a good meal developed nausea vomiting and diarrhea and had a syncopal episode while on the toilet, she did not fall she simply slumped over. She had no trauma. She had no complaints upon arrival. Physical exam was unremarkable patient did appear somewhat pale but this is her baseline Labs revealed some psychosis which is likely reactive to acute nausea vomiting diarrhea next line troponin is negative, kidney function within normal limits, electrolytes are normal Hemodynamically stable urgency department visit results were discussed with the patient's daughter bedside is comfortable with the plan for discharge home to the patient's [facility] she feels the patient will do better and familiar surroundings and she would if she was admitted to the hospital. All questions pertaining care were answered return parameters were discussed the patient was discharged home in stable condition. - Lab Data Result diagrams: 08/09/18 23:48 08/09/18 23:48 Lab Results 08/09/18 08/09/18 08/09/18 Range/Units 23:48 23:48 23:48 WBC 16.7 H (3.8-10.6) k/uL RBC 3.78 L (3.80-5.40) m/uL Hgb 11.8 (11.4-16.0) gm/dL Hct 36.4 (34.0-46.0) % MCV 96.3 (80.0-100.0) fL MCH 31.2 (25.0-35.0) pg MCHC 32.4 (31.0-37.0) g/dL RDW 13.3 (11.5-15.5) % Plt Count 225 (150-450) k/uL Neutrophils % 87 % Lymphocytes % 7 % Monocytes % 4 % Eosinophils % 1 % Basophils % 0 % Neutrophils # 14.6 H (1.3-7.7) k/uL Lymphocytes # 1.2 (1.0-4.8) k/uL Monocytes # 0.6 (0-1.0) k/uL Eosinophils # 0.1 (0-0.7) k/uL Basophils # 0.1 (0-0.2) k/uL PT 11.4 (9.0-12.0) sec INR 1.1 (<1.2) APTT 24.5 (22.0-30.0) sec Sodium 140 (137-145) mmol/L Potassium 3.7 (3.5-5.1) mmol/L Chloride 107 (98-107) mmol/L Carbon Dioxide 23 (22-30) mmol/L Anion Gap 10 mmol/L BUN 30 H (7-17) mg/dL Creatinine 0.89 (0.52-1.04) mg/dL Est GFR (CKD-EPI)AfAm 69 (>60 ml/min/1.73 sqM) Est GFR (CKD-EPI)NonAf 60 (>60 ml/min/1.73 sqM) Glucose 137 H (74-99) mg/dL Calcium 9.3 (8.4-10.2) mg/dL Total Bilirubin 0.5 (0.2-1.3) mg/dL AST 24 (14-36) U/L ALT 23 (9-52) U/L Alkaline Phosphatase 45 (38-126) U/L Troponin I (0.000-0.034) ng/mL Total Protein 7.1 (6.3-8.2) g/dL Albumin 4.1 (3.5-5.0) g/dL Urine Color Urine Appearance (Clear) Urine pH (5.0-8.0) Ur Specific [place] (1.001-1.035) Urine Protein (Negative) Urine Glucose (UA) (Negative) Urine Ketones (Negative) Urine Blood (Negative) Urine Nitrite (Negative) Urine Bilirubin (Negative) Urine Urobilinogen (<2.0) mg/dL Ur Leukocyte Esterase (Negative) Influenza Type A RNA (Not Detectd) Influenza Type B (PCR) (Not Detectd) 08/09/18 08/10/18 08/10/18 Range/Units 23:48 00:47 01:04 WBC (3.8-10.6) k/uL RBC (3.80-5.40) m/uL Hgb (11.4-16.0) gm/dL Hct (34.0-46.0) % MCV (80.0-100.0) fL MCH (25.0-35.0) pg MCHC (31.0-37.0) g/dL RDW (11.5-15.5) % Plt Count (150-450) k/uL Neutrophils % % Lymphocytes % % Monocytes % % Eosinophils % % Basophils % % Neutrophils # (1.3-7.7) k/uL Lymphocytes # (1.0-4.8) k/uL Monocytes # (0-1.0) k/uL Eosinophils # (0-0.7) k/uL Basophils # (0-0.2) k/uL PT (9.0-12.0) sec INR (<1.2) APTT (22.0-30.0) sec Sodium (137-145) mmol/L Potassium (3.5-5.1) mmol/L Chloride (98-107) mmol/L Carbon Dioxide (22-30) mmol/L Anion Gap mmol/L BUN (7-17) mg/dL Creatinine (0.52-1.04) mg/dL Est GFR (CKD-EPI)AfAm (>60 ml/min/1.73 sqM) Est GFR (CKD-EPI)NonAf (>60 ml/min/1.73 sqM) Glucose (74-99) mg/dL Calcium (8.4-10.2) mg/dL Total Bilirubin (0.2-1.3) mg/dL AST (14-36) U/L ALT (9-52) U/L Alkaline Phosphatase (38-126) U/L Troponin I <0.012 (0.000-0.034) ng/mL Total Protein (6.3-8.2) g/dL Albumin (3.5-5.0) g/dL Urine Color Yellow Urine Appearance Clear (Clear) Urine pH 5.0 (5.0-8.0) Ur Specific [place] 1.030 (1.001-1.035) Urine Protein Trace H (Negative) Urine Glucose (UA) Negative (Negative) Urine Ketones Negative (Negative) Urine Blood Negative (Negative) Urine Nitrite Negative (Negative) Urine Bilirubin Negative (Negative) Urine Urobilinogen <2.0 (<2.0) mg/dL Ur Leukocyte Esterase Negative (Negative) Influenza Type A RNA Not Detected (Not Detectd) Influenza Type B (PCR) Not Detected (Not Detectd) Disposition Clinical Impression: Vasovagal syncope Disposition: HOME SELF-CARE Condition: Stable Instructions (If sedation given, give patient instructions): Syncope (DC) Is patient prescribed a controlled substance at d/c from ED?: No Referrals: Angela Bullock MD [Primary Care Provider] - 1-2 days
[2018-08-10 01:21] LABS: Appearance,Urine Clear (Clear); Bilirubin,Urine Negative (Negative); Blood,Urine Negative (Negative); Color,Urine Yellow; Glucose,Urine (UA) Negative (Negative); Ketones,Urine Negative (Negative); Leukocyte Esterase,Urine Negative (Negative); Nitrite,Urine Negative (Negative); Protein,Urine Trace (Negative); Urobilinogen,Urine <2.0 mg/dL (<2.0)
[2018-08-10 02:15] VITALS: PULSE 78; TEMP 98.3
== END 2018-08-10 02:56 | disposition home or self-care (01) ==
LOC: EC 23:33
DX: R55 Syncope and collapse (principal); R11.2 Nausea with vomiting, unspecified; R19.7 Diarrhea, unspecified; R41.0 Disorientation, unspecified; F29 Unspecified psychosis not due to a substance or known physiological condition; E03.9 Hypothyroidism, unspecified; Z79.899 Other long term (current) drug therapy; Z88.8 Allergy status to other drugs, medicaments and biological substances; Z79.890 Hormone replacement therapy; Z96.641 Presence of right artificial hip joint
CPT/HCPCS: 36415; 71046; 80053; 81003; 84484; 85025; 85610; 85730; 87502; 93005; 99285

== ENCOUNTER 2019-03-22 08:01 | Emergency (ER) | payer MEDICARE, OTHER ==
[2019-03-22] MEDS ORDERED: DIPH,PERTUS(ACELL)TETVAC-LF 0.5 ML VIAL IM ONE (08:03)
[2019-03-22] MEDS ORDERED: LIDOCAINE/EPINEPHR/TETRACAINE 5 ML BOTTLE TOPICAL ONE (08:03)
[2019-03-22 08:17] VITALS: RESP 18; TEMP 97.9
--- NOTE | 2019-03-22 08:22 | ED ---
Fall HPI - General Chief Complaint: Fall Stated Complaint: fall Time Seen by Provider: 03/22/19 08:03 Source: family, EMS Mode of arrival: EMS - History of Present Illness Initial Comments: 83-year-old female on hospice with advanced dementia presenting to the emergency department today for evaluation after fall from wheelchair with right-sided forehead laceration. Patient was brought in by EMS after a fall with sustained a head laceration. Patient's daughter called the emergency department requesting laceration repair and head CT. Patient poor historian overall given PMH, but responsive and appropriate with responses in regards to pain. EMS states that upon arrival patient was ambulatory and had no complaints on their arrival, patient ambulated to the bathroom prior to being assisted onto the stretcher they did not note protective postures. Patient denied neck pain, headache. Patient upon history taking in ER complained of neck pain and c-collar was then applied at this time. Patient complaining of left shoulder pain. No other stated complaints or obvious protective posturing. Patient VS stable. - Related Data Home Medications Medication Instructions Recorded Confirmed Levothyroxine Sodium [Synthroid] 88 mcg PO DAILY@0800 11/04/16 03/22/19 Rivastigmine 9.5MG/24Hr Patch 1 patch TRANSDERM DAILY 11/04/16 03/22/19 [Exelon 9.5MG/24Hr Patch] Artificial Tears-Hypromellose 1 drops BOTH EYES QID 02/14/18 03/22/19 [Artificial Tear Drops] Colloidal Oatmeal [Eucerin Eczema 1 applic TOPICAL DAILY PRN 02/14/18 03/22/19 Relief] Cyanocobalamin (Vitamin B-12) 1,000 mcg PO DAILY@0800 02/14/18 03/22/19 [Vitamin B-12] Ferrous Sulfate [Iron (65 MG 325 mg PO DAILY@1400 02/14/18 03/22/19 Elemental)] Multivitamins, Thera [Multivitamin 1 tab PO DAILY@0800 02/14/18 03/22/19 (formulary)] Sennosides [Senna] 17.2 mg PO HS@2000 02/14/18 03/22/19 traMADol HCl [Ultram] 50 mg PO DAILY PRN 02/14/18 03/22/19 Dorzolamide 2% [Trusopt 2%] 1 drops BOTH EYES BID@1000,2200 03/12/18 03/22/19 Lactose-Reduced Food [Boost Plus] 237 ml PO TID@0800,1200,1700 03/12/18 03/22/19 Amoxicillin 2,000 mg PO ONCE PRN 03/22/19 03/22/19 Apixaban [Eliquis] 2.5 mg PO BID@0800,199903/22/19 03/22/19 Cholecalciferol [Vitamin D3 (25 2,000 unit PO DAILY@0800 03/22/19 03/22/19 Mcg = 1000 Iu)] Maria Teresa-Lanta 15 ml PO BID PRN 03/22/19 03/22/19 LORazepam [Ativan] 1 mg PO BID PRN 03/22/19 03/22/19 Magnesium Hydroxide [Milk of 2,400 mg PO DAILY PRN 03/22/19 03/22/19 Magnesia] guaiFENesin-Coden 100-10MG/5ML 10 ml PO Q6H PRN 03/22/19 03/22/19 [Robitussin AC] risperiDONE [risperiDONE ODT] 0.25 mg PO DAILY@0800 03/22/19 03/22/19 risperiDONE [risperiDONE ODT] 0.5 mg PO HS@199903/22/19 03/22/19 Allergies Allergy/AdvReac Type Severity Reaction Status Date / Time acetaminophen [From Tylenol] AdvReac Unknown Verified 03/22/19 08:59 codeine AdvReac Unknown Verified 03/22/19 08:59 thiopental [From Pentothal] AdvReac Anaphylaxis Verified 03/22/19 08:59 Review of Systems ROS Statement: Those systems with pertinent positive or pertinent negative responses have been documented in the HPI. ROS Other: All systems not noted in ROS Statement are negative. Past Medical History Past Medical History: Dementia, Eye Disorder, Thyroid Disorder Additional Past Medical History / Comment(s): OSTEOPOROSIS, CHRONIC LOW VIT-D, VAGINAL DELIVERY X3, GLAUCOMA, HYPOTHYROID, DIVERTICULITIS, past fall/rt broken femur(sx done), History of Any Multi-Drug Resistant Organisms: None Reported Past Surgical History: Cholecystectomy, Hysterectomy Additional Past Surgical History / Comment(s): rt hip hemiarthroplasty Past Anesthesia/Blood Transfusion Reactions: Previous Problems w/ Anesthesia Additional Past Anesthesia/Blood Transfusion Reaction / Comment(s): PER DAUGHTER, "SHE ARRESTED IN SURGERY AFTER HAVING SODIUM PENTATHOL". Past Psychological History: No Psychological Hx Reported Smoking Status: Never smoker Past Alcohol Use History: Occasional Past Drug Use History: None Reported - Past Family History Mother History Unknown: Yes Family Medical History: Unable to Obtain Father Family Medical History: Unable to Obtain General Exam - General Exam Comments Initial Comments: General: The patient is awake and alert, in no distress Eye: +3 mm pupils are equal, round and reactive to light, extra-ocular movements are intact. No nystagmus. There is normal conjunctiva bilaterally. No signs of icterus. Ears, nose, mouth and throat: There are moist mucous membranes and no oral lesions. No raccoon or Russo sign however there is a 36-year-old laceration to the right side of forehead. No exposure of osseous structures Neck: The neck is supple, there is no tenderness or JVD. Cardiovascular: There is a regular rate and rhythm. No murmur, rub or gallop is appreciated. Respiratory: Lungs are clear to auscultation, respirations are non-labored, breath sounds are equal. No wheezes, stridor, rales, or rhonchi. Gastrointestinal: Soft, non-distended, non-tender abdomen without masses or organomegaly noted. There is no rebound or guarding present. Musculoskeletal: Normal inspection of the joints of the upper and lower extrem ity is negative logroll bilaterally. No pain with pelvic compression. No internal or external rotation or shortening of the lower extremity bilaterally. Patient has some tenderness with range of motion of the left shoulder. However the range is not limited and full strength. Strength 5/5. Sensation intact. Radial pulses equal bilaterally 2+. Neurological: A&O x 2 not to time. Obvious short term memory changes. CN II- XII intact, There are no obvious motor or sensory deficits. Coordination appears grossly intact. Speech is normal. Skin: Skin is warm and dry and no rashes or lesions are noted. Acute bruising or ecchymosis noted Psychiatric: Cooperative, appropriate mood & affect, normal judgment. Limitations: altered mental status Course Vital Signs 03/22/19 03/22/19 08:13 12:50 Temperature 97.9 F Pulse Rate 69 70 Respiratory 18 18 Rate Blood Pressure 119/56 118/61 O2 Sat by Pulse 95 98 Oximetry Procedures - Laceration Laceration #1 Consent Obtained: verbal consent Indication: laceration Site: face Size (cm): 3 Description: linear Depth: simple, single layer Pre-repair: wound explored, irrigated extensively, deep structures intact Type of Sutures: nylon Size of Sutures: 6-0 Number of Sutures: 7 Technique: simple, interrupted Patient Tolerated Procedure: well, no complications Medical Decision Making - Medical Decision Making 83-year-old female presenting to the emergency department for cc of fall. Head laceration. laceration repaired. no focal deficits. short term memory changes evident. Patient xr o left shoulder reveals possible rib fracture, more focused studies reveal a REMOTE rib fracture. No pneumothorax. No pleural efffusion. Patietn has no complaints of chest or rib pain. patient appears well CT brain c- spine (-)> Patient case discussed with daughter agreeable wtih return parameters and outpatient f/u. Suture removal/care discussed. Patient discharge to extended care facility. Was discussed in detail and reviewed imaging studies by attending provider Dr. Floyd prior to discharge home Disposition Clinical Impression: Fracture of rib of left side, Fall, Left shoulder pain, Facial laceration Disposition: [facility] Instructions (If sedation given, give patient instructions): Care For Your Stitches (ED), Fall Prevention (ED), Facial Laceration (ED) Additional Instructions: Please use medication as discussed. Please follow-up with family doctor in the next 2 days. Suture removal in 5-7 days. Hold eliquis for 2 days. Please return to emergency room if the symptoms increase or worsen or for any other concerns. Is patient prescribed a controlled substance at d/c from ED?: No Referrals: Angela Bullock MD [Primary Care Provider] - 1-2 days Time of Disposition: 12:15 - Out of Hospital Transfer - Req. Specs Out of Hospital Transfer - Requested Specifics: Other Non-Acute
--- NOTE | 2019-03-22 09:12 | CT ---
EXAMINATION TYPE: CT brain [place] wo con DATE OF EXAM: 03/22/2019 COMPARISON: CT brain 06/06/2018, CT C-spine 03/12/2018 HISTORY: Fall, laceration TECHNIQUE: 1. Axial CT images of the head without contrast. Bone windows and sagittal and coronal reformats were reviewed. 2. Axial CT images of the cervical spine without contrast. Bone windows and sagittal and coronal refo rmats were reviewed. 3. CT DLP: 1226.1 mGycm Automated exposure control for dose reduction was used. FINDINGS: CT Head: No acute intracranial hemorrhage. Scattered periventricular and deep cortical white matter areas of l ow attenuation, likely representing sequela of chronic microangiopathy. No acute loss of agee-white m atter differentiation to suggest large territorial infarction. Mild cerebral volume loss with appropriate size and morphology of the ventricular system. No extra-ax ial fluid collections or midline shift of structures. Patent basal cisterns. No depressed or displaced calvarial fracture. Right supraorbital laceration. Intracranial vascular ca lcifications. Visualized paranasal sinuses and temporal bone structures are well aerated. The orbits and skull base are unremarkable. CT Cervical Spine: The cervical spine is imaged through T4. There is diffuse osseous demineralization, limiting assessme nt for nondisplaced fractures. Vertebral bodies and facet joints are anatomically aligned. No displa elham fracture. Vertebral body heights are maintained. Mild degenerative changes throughout the cervical spine without significant osseous impingement upon the spinal canal or neural foramen. No prevertebral edema or soft tissue abnormality. Biapical lung scarring. IMPRESSION: 1. No acute intracranial abnormality. Right supraorbital soft tissue laceration. 2. Senescent changes including cerebral volume loss and sequale of chronic microangiopathy. 3. No acute traumatic injury of the cervical spine.
--- NOTE | 2019-03-22 10:06 | XR ---
EXAMINATION TYPE: XR shoulder complete LT DATE OF EXAM: 03/22/2019 CLINICAL HISTORY: Fall, pain TECHNIQUE: Three views of the left shoulder are obtained. COMPARISON: None. FINDINGS: No fracture about the shoulder. Mildly displaced left fifth rib fracture. Glenohumeral and acromial c lavicular joints are congruent. IMPRESSION: 1. No fracture or dislocation about the left shoulder. 2. Mildly displaced left fifth rib fracture.
--- NOTE | 2019-03-22 12:01 | XR ---
EXAMINATION TYPE: XR ribs LT w pa chest xray DATE OF EXAM: 03/22/2019 COMPARISON: Shoulder radiograph same day HISTORY: Fall, pain TECHNIQUE: Single frontal view of the chest. 2 views of the left ribs. FINDINGS: CHEST: Cardiac silhouette is normal in size. Lungs are clear. Biapical pleural thickening noted. No p leural effusion or pneumothorax. Ribs: There is a mildly displaced fracture of the left rib angle. No displaced rib fracture visualize d elsewhere. IMPRESSION: Redemonstrated displaced left rib fracture. No pneumothorax.
[2019-03-22 12:52] VITALS: BP 118/61; PULSE 70
== END 2019-03-22 12:40 ==
LOC: EC 08:01
DX: S22.32XA Fracture of one rib, left side, initial encounter for closed fracture (principal); S01.81XA Laceration without foreign body of other part of head, initial encounter; M25.512 Pain in left shoulder; H40.9 Unspecified glaucoma; E03.9 Hypothyroidism, unspecified; F03.90 Unspecified dementia, unspecified severity, without behavioral disturbance, psychotic disturbance, mood disturbance, and anxiety; M81.0 Age-related osteoporosis without current pathological fracture; Z79.01 Long term (current) use of anticoagulants; Z88.6 Allergy status to analgesic agent; Z79.899 Other long term (current) drug therapy; Z79.890 Hormone replacement therapy; Z88.5 Allergy status to narcotic agent; Z88.8 Allergy status to other drugs, medicaments and biological substances; W05.0XXA Fall from non-moving wheelchair, initial encounter; Y92.009 Unspecified place in unspecified non-institutional (private) residence as the place of occurrence of the external cause
CPT/HCPCS: 12013; 70450; 72125; 99284

== ENCOUNTER → 2019-05-22 | Outpatient (CLI) | payer MEDICARE, OTHER ==
[2019-05-22 18:00] LABS: Appearance,Urine Cloudy (Clear); Bacteria,Urine Many /hpf; Bilirubin,Urine Negative (Negative); Blood,Urine Negative (Negative); Budding Yeast,Urine Few /hpf; Color,Urine Yellow; Glucose,Urine (UA) Negative (Negative); Ketones,Urine Negative (Negative); Leukocyte Esterase,Urine Large (Negative); Mucus,Urine Rare /hpf; Nitrite,Urine Positive (Negative); PH, Urine 5.5 (5.0-8.0); Protein,Urine Trace (Negative); RBC,Urine 4 /hpf (0-5); Specific Gravity,Urine 1.025 (1.001-1.035); Squamous Epithelial Cell,Urine 2 /hpf (0-4); Urobilinogen,Urine <2.0 mg/dL (<2.0); WBC,Urine 103 /hpf (0-5)
== END | disposition home or self-care (01) ==
LOC: LABWHC1 16:29
PROVIDERS: ATTEND Family Medicine
DX: R82.90 Unspecified abnormal findings in urine (principal)
CPT/HCPCS: 81001